=== PATIENT | male | born 1945 | race Hispanic/Latino ===

== ENCOUNTER 2021-11-12 16:24 | Inpatient (IN) | payer MEDICARE ==
[2021-11-13 10:34] LABS: Basophils # (Auto) 0.1 K/mm3 (0.0-0.1); Basophils % (Auto) 0.7 % (0.0-1.8); Eosinophils % (Auto) 0.5 % (0.0-4.3); Hematocrit 36.7 % (35.5-45.6); Hemoglobin 12.6 gm/dl (11.8-15.2); Lymphocytes # (Auto) 1.6 K/mm3 (1.2-5.4); Lymphocytes % (Auto) 23.4 % (13.4-35.0); Mean Corpuscular HGB Conc 34 % (32-34); Mean Corpuscular Volume 96 fl (84-94); Monocytes # (Auto) 0.7 K/mm3 (0.0-0.8); Monocytes % (Auto) 9.9 % (0.0-7.3); Platelet Count 272 K/mm3 (140-440); Red Blood Count 3.82 M/mm3 (3.65-5.03); Red Cell Distribution Width 16.2 % (13.2-15.2)
[2021-11-13 10:43] LABS: Alanine Aminotransferase 25 units/L (7-56); Albumin 3.9 g/dL (3.9-5); BUN/Creatinine Ratio 14; Blood Urea Nitrogen 13 mg/dL (9-20); Calcium 9.7 mg/dL (8.4-10.2); Chol/HDL Ratio 4.89 %; HDL Cholesterol 39 mg/dL (40-59); Hemolysis Index 0; LDL Cholesterol,Direct 121 mg/dL (50-130)
[2021-11-13] MEDS ORDERED: NON-FORMULARY EACH (Acetaminophen [Tylenol] 325 MG Capsule) PO PRN (11:06)
[2021-11-13] MEDS ORDERED: traMADol 50 MG TAB PO PRN (11:06)
--- NOTE | 2021-11-13 11:06 | Consultation ---
History of Present Illness - Reason for Consult Consult date: 11/13/21 Medical management Requesting physician: MARLY COVARRUBIAS - History of Present Illness 76-year-old male with Vascular Dementia with behavioral disturbance, Cerebral Atherosclerosis, HTN, HLD, Anemia of chronic disease, GERD, Obesity, OA, MDD admitted to [facility] for psychiatric stabilization. Patient seen and evaluated in the recreation room. Patient has fever, chills, chest pain, palpitation, adductive cough, skin rash and recent contact, no supportive COVID- 19. Patient appears to be at baseline level of cognition and function. No reported nursing events. Past History Past Medical History: anemia, arthritis, hypertension, hyperlipidemia, other (See HPI) Past Surgical History: hernia repair, Other (Shoulder surgery, spine surgery) Social history: . denies: smoking, alcohol abuse, prescription drug abuse Family history: diabetes, hypertension Medications and Allergies Allergies Allergy/AdvReac Type Severity Reaction Status Date / Time No Known Allergies Allergy Verified 11/13/21 01:08 Home Medications Medication Instructions Recorded Confirmed Last Taken Type Acetaminophen [Tylenol] 2 tab PO Q4H PRN 11/13/21 11/13/21 Unknown History Aspirin EC [Halfprin EC] 81 mg PO QDAY 11/13/21 11/13/21 Unknown History AtorvaSTATin [Lipitor] 40 mg PO HS 11/13/21 11/13/21 Unknown History Cholecalciferol (Vitamin D3) 5,000 unit PO DAILY 11/13/21 11/13/21 Unknown Histo ry [Vitamin D3] Elderberry Fruit and Flower [Black 1 cap PO DAILY 11/13/21 11/13/21 Unknown History Elderberry 575 mg Cap] Fenofibrate 160 mg PO DAILY 11/13/21 11/13/21 Unknown History Gabapentin [Neurontin] 300 mg PO BID 11/13/21 11/13/21 Unknown History Isosorbide Mononitrate [Isosorbide 30 mg PO Q24H 11/13/21 11/13/21 Unknown History Mononitrate ER] Metoprolol [Lopressor TAB] 50 mg PO BID 11/13/21 11/13/21 Unknown History Mineral Oil/Petrolatum,White 3.5 gm OP Q12H 11/13/21 11/13/21 Unknown History [Artificial Eye Lub 15-83% Oint] Multivitamin with Minerals 1 each PO DAILY 11/13/21 11/13/21 Unknown History [Multivitamins with Minerals] [place]-3 Fatty Acids [Super Twin 1,250 mg PO DAILY 11/13/21 11/13/21 Unknown History Epa-Dha] Omeprazole 40 mg PO QAM 11/13/21 11/13/21 Unknown History Valsartan [Diovan] 80 mg PO DAILY 11/13/21 11/13/21 Unknown History Vit C/E/Zn/Coppr/Lutein/Zeaxan 1 each PO DAILY 11/13/21 11/13/21 Unknown History [Preservision Areds 2 Chew Tab] polyethylene glycoL 3350 [Miralax 17 gm PO QDAY 11/13/21 11/13/21 Unknown History 3350] traMADoL [Ultram] 50 mg PO Q4HR PRN 11/13/21 11/13/21 Unknown History Active Meds: Active Medications Trazodone HCl (Trazodone 50 Mg Tab) 50 mg PO QHS RISSA Review of Systems Constitutional: no weight loss, no weight gain, no fever, no chills Ears, nose, mouth and throat: no ear pain, no tinnitis, no decreased hearing, no sinus pressure Cardiovascular: no chest pain, no palpitations, no rapid/irregular heart beat, no syncope, no lightheadedness Respiratory: no cough, no cough with sputum, no hemoptysis, no shortness of breath Gastrointestinal: no abdominal pain, no nausea, no vomiting, no diarrhea Genitourinary Male: no hematuria, no flank pain, no discharge, no urinary frequency, no urinary hesitancy Rectal: no pain, no incontinence, no bleeding Musculoskeletal: no neck stiffness, no neck pain, no shooting arm pain, no arm numbness/tingling, no low back pain Integumentary: no rash, no pruritis, no redness, no sores, no wounds Neurological: no head injury, no paralysis, no parathesias, no seizures, no syncope Endocrine: no cold intolerance, no polyphagia, no excessive thirst, no polydipsia, no nocturia Hematologic/Lymphatic: no easy bruising, no easy bleeding Allergic/Immunologic: no urticaria, no allergic rhinitis Exam - Constitutional Vitals: Temp Pulse Resp BP Pulse Ox 97.6 F 102 H 16 135/90 96 11/13/21 09:53 08/03/22 09:53 11/13/21 09:53 11/13/21 09:53 11/13/21 09:53 General appearance: Present: no acute distress, obese - EENT Eyes: Present: PERRL ENT: clear oral mucosa, hearing decreased - Neck Neck: Present: supple, normal ROM - Respiratory Respiratory effort: normal Respiratory: bilateral: CTA - Cardiovascular Heart Sounds: Present: S1 & S2. Absent: rub, click - Extremities Extremities: pulses symmetrical, No edema Peripheral Pulses: within normal limits - Abdominal General gastrointestinal: Present: soft, non-tender, non-distended, normal bowel sounds Male genitourinary: Present: normal - Integumentary Integumentary: Present: clear, warm, dry - Musculoskeletal Musculoskeletal: gait normal, strength equal bilaterally - Psychiatric Psychiatric: appropriate mood/affect, intact judgment & insight - Neurologic Neurologic: CNII-XII intact, moves all extremities Results - Labs CBC & Chem 7: 11/13/21 09:58 11/13/21 09:58 Labs: Abnormal lab results 11/13/21 11/13/21 Range/Units 09:58 09:58 MCV 96 H (84-94) fl MCH 33 H (28-32) pg RDW 16.2 H (13.2-15.2) % [place] % (Auto) 9.9 H (0.0-7.3) % Glucose 110 H (75-100) mg/dL Triglycerides 172 H (2-149) mg/dL HDL Cholesterol 39 L (40-59) mg/dL Assessment and Plan - Patient Problems (1) Major depression Current Visit: Yes Status: Acute Qualifiers: Psychotic features: with psychotic features Plan to address problem: Continue medical management, supportive care. Behavior change counseling, cognitive behavioral therapy. (2) Vascular dementia with behavioral disturbance Current Visit: Yes Status: Acute Plan to address problem: Verbal prompting, verbal redirection, benzodiazepine therapy as clinically indicated (3) Cerebral atherosclerosis Current Visit: Yes Status: Acute Plan to address problem: Risk factor reduction, antiplatelet therapy as clinically indicated. (4) Hypertension Current Visit: Yes Status: Acute Qualifiers: Hypertension type: primary hypertension Qualified Code(s): I10 - Essential (primary) hypertension Plan to address problem: Monitor blood pressure every shift, continue medical management (5) Hyperlipidemia Current Visit: Yes Status: Acute Qualifiers: Hyperlipidemia type: mixed hyperlipidemia Qualified Code(s): E78.2 - Mixed hyperlipidemia Plan to address problem: Low-cholesterol diet, statin therapy, supportive care. (6) Obesity Current Visit: Yes Status: Acute Plan to address problem: Balanced diet, increase physical activity discharge (7) Osteoarthritis Current Visit: Yes Status: Acute Plan to address problem: Pain control, supportive care. (8) Advance care planning Current Visit: Yes Status: Acute Plan to address problem: Disease education data, care plan discussed, diagnoses discussed, patient is full code, +30 minutes. (9) Preventative health care Current Visit: Yes Status: Acute Plan to address problem: Home safety counseling, outpatient follow-up with primary care physician for all age and risk factor appropriate screening test. +30 minutes.
[2021-11-13] MEDS ORDERED: PETROLATUM OP SCH (11:15)
[2021-11-13] MEDS ORDERED: MINERAL OIL OP SCH (11:15)
[2021-11-13] MEDS ORDERED: [UNRECOGNIZED DRUG - OTHER] OP SCH (11:15)
[2021-11-13] MEDS ORDERED: ACETAMINOPHEN 325 MG TAB PO PRN (11:24)
[2021-11-13] MEDS ORDERED: HYPROMELLOSE 0.5% OPHTH SOLN 15 ML OU PRN (11:26)
--- NOTE | 2021-11-13 16:23 | History and Physical Report ---
GP History & Physical - History of Present Illness Date of admission: 11/12/21 Date of Examination: 11/13/21 Reason for Admission: Danger to self, Failure of Outpatient Treatment, Severe anxiety/depression History of Present Illness: The patient was seen today. He is a/o x 3, but he is a poor historian and difficult to follow. He says he said some things jokingly that landed him here. He says he said "where's the 45 I might as well ended." He says "but I wasn't serious." The patient also says he picked up a butter knife but was only joking. He as a lot of difficulty articulating his thoughts. The patient denies hallucinations or SI/HI. He says he lives in a local shelter. PAST PSYCHIATRIC HISTORY: Unable to obtain PAST MEDICAL HISTORY: Family Psychiatric History: None reported SOCIAL HISTORY Unable to obtain REVIEW OF SYSTEMS Constitutional: Negative for weight loss ENT: Negative for stridor Respiratory: Negative for cough or hemoptysis All other systems reviewed and are negative MENTAL STATUS General Appearance and Behavior: age appropriate, good eye contact, cooperative with questioning and polite Cooperation: Cooperative Psychomotor Behavior: within normal limits Mood: okay Affect and affective range: Congruent with stated mood Thought Process: impaired Thought Content: None Speech: Rambling Suicidal Ideation: possibly passive Homicidal Ideation: Denies HI Hallucinations: Denies Impulse Control: Limited Insight and Judgment: Poor Memory: Limited Attention: Limited Orientation: alert and oriented Assessment Major Depressive Disorder Treatment Plan Patient will be admitted for inpatient psychiatric evaluation, medication adjustment and close monitoring The patient's behavior, mood, sleep and appetite will be closely monitored. Patient will be enrolled in individual and group therapeutic sessions and encouraged to attend. Patient will be provided with a safe and structured environment. Patient's physical health needs will be addressed by the Hospitalist. Hospitalist Consulted Labs including CBC, CMP, Lipid profile and Hemoglobin A1C ordered Social Assessment will be completed and the Hydrometeorological Technician will work with patient and family to ensure a suitable and safe disposition Medication adjustment will be made as clinically indicated Restarted meds Usual Wellness Spiritism/Preservation: - Start Trazodone 50 mg po QHS PRN The patient agreed on the treatment plan, understood the risk, benefit, alternative treatment, potential consequence of no treatment, and gave informed consent. Case staffed with Dr. Jolly Legal Status: Voluntary Reaction to Hospitalization: Accepting Medications and Allergies Allergies Allergy/AdvReac Type Severity Reaction Status Date / Time No Known Allergies Allergy Verified 11/13/21 01:08 Home Medications Medication Instructions Recorded Confirmed Last Taken Type Acetaminophen [Tylenol] 2 tab PO Q4H PRN 11/13/21 11/13/21 Unknown History Aspirin EC [Halfprin EC] 81 mg PO QDAY 11/13/21 11/13/21 Unknown History AtorvaSTATin [Lipitor] 40 mg PO HS 11/13/21 11/13/21 Unknown History Cholecalciferol (Vitamin D3) 5,000 unit PO DAILY 11/13/21 11/13/21 Unknown History [Vitamin D3] Elderberry Fruit and Flower [Black 1 cap PO DAILY 11/13/21 11/13/21 Unknown History Elderberry 575 mg Cap] Fenofibrate 160 mg PO DAILY 11/13/21 11/13/21 Unknown History Gabapentin [Neurontin] 300 mg PO BID 11/13/21 11/13/21 Unknown History Isosorbide Mononitrate [Isosorbide 30 mg PO Q24H 11/13/21 11/13/21 Unknown History Mononitrate ER] Metoprolol [Lopressor TAB] 50 mg PO BID 11/13/21 11/13/21 Unknown History Mineral Oil/Petrolatum,White 3.5 gm OP Q12H 11/13/21 11/13/21 Unknown History [Artificial Eye Lub 15-83% Oint] Multivitamin with Minerals 1 each PO DAILY 11/13/21 11/13/21 Unknown History [Multivitamins with Minerals] [place]-3 Fatty Acids [Super Twin 1,250 mg PO DAILY 11/13/21 11/13/21 Unknown History Epa-Dha] Omeprazole 40 mg PO QAM 11/13/21 11/13/21 Unknown History Valsartan [Diovan] 80 mg PO DAILY 11/13/21 11/13/21 Unknown History Vit C/E/Zn/Coppr/Lutein/Zeaxan 1 each PO DAILY 11/13/21 11/13/21 Unknown History [Preservision Areds 2 Chew Tab] polyethylene glycoL 3350 [Miralax 17 gm PO QDAY 11/13/21 11/13/21 Unknown History 3350] traMADoL [Ultram] 50 mg PO Q4HR PRN 11/13/21 11/13/21 Unknown History Active Meds: Active Medications Acetaminophen (Acetaminophen 325 Mg Tab) 650 mg PO Q4H PRN PRN Reason: Pain, Mild (1-3) Artificial Tears (Hypromellose 0.5% Ophth Soln 15 Ml) 2 drops OU Q12H PRN PRN Reason: Dry Eye(s) Aspirin (Aspirin Ec 81 Mg Tab) 81 mg PO QDAY [facility] Atorvastatin Calcium (Atorvastatin 40 Mg Tab) 40 mg PO HS [facility] Cholecalciferol (Cholecalciferol (Vit D3) 5,000 Unit Tab) 5,000 unit PO DAILY [facility] Fish Oil ([place]-3 Fatty Acids/Fish Oil 1 Gram Cap) 1,000 mg PO QDAY [facility] Gabapentin (Gabapentin 300 Mg Cap) 300 mg PO BID [facility] Isosorbide Mononitrate (Isosorbide Mononitrate Er 30 Mg Tab) 30 mg PO Q24H [facility] Last Admin: 11/13/21 14:42 Dose: 30 mg Metoprolol Tartrate (Metoprolol Tartrate 50 Mg Tab) 50 mg PO BID [facility] Miscellaneous Medication (Fenofibrate [Fenofibrate]) 160 mg PO DAILY [facility] Multivitamins (Multivitamins ,Therapeutic Tab) 1 each PO DAILY [facility] Pantoprazole Sodium (Pantoprazole 40 Mg Tab) 40 mg PO DAILY [facility] Polyethylene Glycol (Polyethylene Glycol 3350 17 Gm Powder) 17 gm PO QDAY [facility] Tramadol HCl (Tramadol 50 Mg Tab) 50 mg PO Q4HR PRN PRN Reason: Pain, Moderate (4-6) Trazodone HCl (Trazodone 50 Mg Tab) 50 mg PO QHS [facility] Valsartan (Valsartan 160mg Tab) 80 mg PO QDAY [facility] Results - Results Labs/Vitals: Laboratory Last Values WBC 6.9 K/mm3 (4.5-11.0) 11/13/21 09:58 RBC 3.82 M/mm3 (3.65-5.03) 11/13/21 09:58 Hgb 12.6 gm/dl (11.8-15.2) 11/13/21 09:58 Hct 36.7 % (35.5-45.6) 11/13/21 09:58 MCV 96 fl (84-94) H 11/13/21 09:58 MCH 33 pg (28-32) H 11/13/21 09:58 MCHC 34 % (32-34) 11/13/21 09:58 RDW 16.2 % (13.2-15.2) H 11/13/21 09:58 Plt Count 272 K/mm3 (140-440) 11/13/21 09:58 Lymph % (Auto) 23.4 % (13.4-35.0) 11/13/21 09:58 [place] % (Auto) 9.9 % (0.0-7.3) H 11/13/21 09:58 Eos % (Auto) 0.5 % (0.0-4.3) 11/13/21 09:58 Baso % (Auto) 0.7 % (0.0-1.8) 11/13/21 09:58 Lymph # (Auto) 1.6 K/mm3 (1.2-5.4) 11/13/21 09:58 [place] # (Auto) 0.7 K/mm3 (0.0-0.8) 11/13/21 09:58 Eos # (Auto) 0.0 K/mm3 (0.0-0.4) 11/13/21 09:58 Baso # (Auto) 0.1 K/mm3 (0.0-0.1) 11/13/21 09:58 Seg Neutrophils % 65.5 % (40.0-70.0) 11/13/21 09:58 Seg Neutrophils # 4.5 K/mm3 (1.8-7.7) 11/13/21 09:58 Sodium 138 mmol/L (137-145) 11/13/21 09:58 Potassium 3.6 mmol/L (3.6-5.0) 11/13/21 09:58 Chloride 103.2 mmol/L (98-107) 11/13/21 09:58 Carbon Dioxide 22 mmol/L (22-30) 11/13/21 09:58 Anion Gap 16 mmol/L 11/13/21 09:58 BUN 13 mg/dL (9-20) 11/13/21 09:58 Creatinine 0.9 mg/dL (0.8-1.3) 11/13/21 09:58 Estimated GFR > 60 ml/min 11/13/21 09:58 BUN/Creatinine Ratio 14 % 11/13/21 09:58 Glucose 110 mg/dL (75-100) H 11/13/21 09:58 Hemoglobin A1c 5.6 % (4-6) 11/13/21 09:58 Calcium 9.7 mg/dL (8.4-10.2) 11/13/21 09:58 Total Bilirubin 0.50 mg/dL (0.1-1.2) 11/13/21 09:58 AST 29 units/L (5-40) 11/13/21 09:58 ALT 25 units/L (7-56) 11/13/21 09:58 Alkaline Phosphatase 73 units/L (35-129) 11/13/21 09:58 Total Protein 6.8 g/dL (6.3-8.2) 11/13/21 09:58 Albumin 3.9 g/dL (3.9-5) 11/13/21 09:58 Albumin/Globulin Ratio 1.3 % 11/13/21 09:58 Triglycerides 172 mg/dL (2-149) H 11/13/21 09:58 Cholesterol 191 mg/dL (50-199) 11/13/21 09:58 LDL Cholesterol Direct 121 mg/dL (50-130) 11/13/21 09:58 HDL Cholesterol 39 mg/dL (40-59) L 11/13/21 09:58 Cholesterol/HDL Ratio 4.89 % 11/13/21 09:58 TSH 2.900 mlU/mL (0.270-4.200) 11/13/21 09:58 Last Vital Signs Temp 97.6 F 11/13/21 09:53 Pulse 102 H 11/13/21 14:42 Resp 16 11/13/21 09:53 BP 135/90 11/13/21 14:42 Pulse Ox 96 11/13/21 09:53 Physical Examination - Constitutional Vitals: Vital Signs Temp Pulse Resp BP Pulse Ox 97.6 F 102 H 16 135/90 96 11/13/21 09:53 11/13/21 14:42 11/13/21 09:53 11/13/21 14:42 11/13/21 09:53 Temperature -Last 24 Hours Temperature 97.6 F Temperature 97.9 F Mental Status Exam - Vital signs Last Vital Signs Temp 97.6 F 11/13/21 09:53 Pulse 102 H 11/13/21 14:42 Resp 16 11/13/21 09:53 BP 135/90 11/13/21 14:42 Pulse Ox 96 11/13/21 09:53 Physician Certification - Certification Statement Physician Certification Statement: This is an acknowledgement statement that CHU FERNANDO is a 76 year old M who requires inpatient psychiatric admission for treatment which could reasonably be expected to improve the patient's condition for Estimated period of time patient will need to remain in the hospital: [ ] Plan for post-hospital care: [ ]
[2021-11-13] MEDS: traZODone 50 MG TAB PO SCH (21:57)
[2021-11-13] MEDS: GABAPENTIN 300 MG CAP PO SCH (21:57)
[2021-11-13] MEDS: METOPROLOL TARTRATE 50 MG TAB PO SCH (22:08)
[2021-11-13] MEDS: traMADol 50 MG TAB PO PRN (23:39)
[2021-11-14] MEDS ORDERED: ESCITALOPRAM 10 MG TAB PO NR (09:57)
--- NOTE | 2021-11-14 09:57 | History and Physical Report ---
GP History & Physical - History of Present Illness Date of admission: 11/13/21 Date of Examination: 11/14/21 Reason for Admission: Danger to self, Failure of Outpatient Treatment, Severe anxiety/depression History of Present Illness: The patient was seen today. He has periods of confusion. He says he slept well he doesn't remember being in the hospital. He denies SI/HI. When asked about hallucinations, he states "I don't know." REVIEW OF SYSTEMS Constitutional: Negative for weight loss ENT: Negative for stridor Respiratory: Negative for cough or hemoptysis All other systems reviewed and are negative MENTAL STATUS General Appearance and Behavior: age appropriate, good eye contact, cooperative with questioning and polite Cooperation: Cooperative Psychomotor Behavior: within normal limits Mood: okay Affect and affective range: Congruent with stated mood Thought Process: impaired Thought Content: None Speech: Rambling Suicidal Ideation: possibly passive Homicidal Ideation: Denies HI Hallucinations: Denies Impulse Control: Limited Insight and Judgment: Poor Memory: Limited Attention: Limited Orientation: alert and oriented Assessment Major Depressive Disorder Treatment Plan Patient will be admitted for inpatient psychiatric evaluation, medication adjustment and close monitoring The patient's behavior, mood, sleep and appetite will be closely monitored. Patient will be enrolled in individual and group therapeutic sessions and encouraged to attend. Patient will be provided with a safe and structured environment. Patient's physical health needs will be addressed by the Hospitalist. Hospitalist Consulted Labs including CBC, CMP, Lipid profile and Hemoglobin A1C ordered Social Assessment will be completed and the Needle Felt Making Machine Operator will work with patient and family to ensure a suitable and safe disposition Medication adjustment will be made as clinically indicated Lexapro 5mg po daily Usual Wellness Zoroastrianism/Preservation: - Start Trazodone 50 mg po QHS PRN The patient agreed on the treatment plan, understood the risk, benefit, alternative treatment, potential consequence of no treatment, and gave informed consent. Case staffed with Dr. Jolly Legal Status: Voluntary Reaction to Hospitalization: Accepting Medications and Allergies Allergies Allergy/AdvReac Type Severity Reaction Status Date / Time No Known Allergies Allergy Verified 11/13/21 01:08 Home Medications Medication Instructions Recorded Confirmed Last Taken Type Acetaminophen [Tylenol] 2 tab PO Q4H PRN 11/13/21 11/13/21 Unknown History Aspirin EC [Halfprin EC] 81 mg PO QDAY 11/13/21 11/13/21 Unknown History AtorvaSTATin [Lipitor] 40 mg PO HS 11/13/21 11/13/21 Unknown History Cholecalciferol (Vitamin D3) 5,000 unit PO DAILY 11/13/21 11/13/21 Unknown History [Vitamin D3] Elderberry Fruit and Flower [Black 1 cap PO DAILY 11/13/21 11/13/21 Unknown History Elderberry 575 mg Cap] Fenofibrate 160 mg PO DAILY 11/13/21 11/13/21 Unknown History Gabapentin [Neurontin] 300 mg PO BID 11/13/21 11/13/21 Unknown History Isosorbide Mononitrate [Isosorbide 30 mg PO Q24H 11/13/21 11/13/21 Unknown History Mononitrate ER] Metoprolol [Lopressor TAB] 50 mg PO BID 11/13/21 11/13/21 Unknown History Mineral Oil/Petrolatum,White 3.5 gm OP Q12H 11/13/21 11/13/21 Unknown History [Artificial Eye Lub 15-83% Oint] Multivitamin with Minerals 1 each PO DAILY 11/13/21 11/13/21 Unknown History [Multivitamins with Minerals] [place]-3 Fatty Acids [Super Twin 1,250 mg PO DAILY 11/13/21 11/13/21 Unknown Hi story Epa-Dha] Omeprazole 40 mg PO QAM 11/13/21 11/13/21 Unknown History Valsartan [Diovan] 80 mg PO DAILY 11/13/21 11/13/21 Unknown History Vit C/E/Zn/Coppr/Lutein/Zeaxan 1 each PO DAILY 11/13/21 11/13/21 Unknown History [Preservision Areds 2 Chew Tab] polyethylene glycoL 3350 [Miralax 17 gm PO QDAY 11/13/21 11/13/21 Unknown History 3350] traMADoL [Ultram] 50 mg PO Q4HR PRN 11/13/21 11/13/21 Unknown History Active Meds: Active Medications Acetaminophen (Acetaminophen 325 Mg Tab) 650 mg PO Q4H PRN PRN Reason: Pain, Mild (1-3) Artificial Tears (Hypromellose 0.5% Ophth Soln 15 Ml) 2 drops OU Q12H PRN PRN Reason: Dry Eye(s) Aspirin (Aspirin Ec 81 Mg Tab) 81 mg PO QDAY RISSA Atorvastatin Calcium (Atorvastatin 40 Mg Tab) 40 mg PO HS [facility] Last Admin: 11/13/21 21:57 Dose: 40 mg Cholecalciferol (Cholecalciferol (Vit D3) 5,000 Unit Tab) 5,000 unit PO DAILY [facility] Fenofibrate (Fenofibrate 145 Mg Tab) 145 mg PO DAILY [facility] Fish Oil ([place]-3 Fatty Acids/Fish Oil 1 Gram Cap) 1,000 mg PO QDAY [facility] Gabapentin (Gabapentin 300 Mg Cap) 300 mg PO BID [facility] Last Admin: 11/13/21 21:57 Dose: 300 mg Isosorbide Mononitrate (Isosorbide Mononitrate Er 30 Mg Tab) 30 mg PO Q24H [facility] Last Admin: 11/13/21 14:42 Dose: 30 mg Metoprolol Tartrate (Metoprolol Tartrate 50 Mg Tab) 50 mg PO BID [facility] Last Admin: 11/13/21 22:08 Dose: 50 mg Multivitamins (Multivitamins ,Therapeutic Tab) 1 each PO DAILY [facility] Pantoprazole Sodium (Pantoprazole 40 Mg Tab) 40 mg PO DAILY [facility] Polyethylene Glycol (Polyethylene Glycol 3350 17 Gm Powder) 17 gm PO QDAY [facility] Tramadol HCl (Tramadol 50 Mg Tab) 50 mg PO Q4HR PRN PRN Reason: Pain, Moderate (4-6) Last Admin: 11/13/21 23:39 Dose: 50 mg Trazodone HCl (Trazodone 50 Mg Tab) 50 mg PO QHS [facility] Last Admin: 11/13/21 21:57 Dose: 50 mg Valsartan (Valsartan 160mg Tab) 80 mg PO QDAY [facility] Results - Results Labs/Vitals: Laboratory Last Values WBC 6.9 K/mm3 (4.5-11.0) 11/13/21 09:58 RBC 3.82 M/mm3 (3.65-5.03) 11/13/21 09:58 Hgb 12.6 gm/dl (11.8-15.2) 11/13/21 09:58 Hct 36.7 % (35.5-45.6) 11/13/21 09:58 MCV 96 fl (84-94) H 11/13/21 09:58 MCH 33 pg (28-32) H 11/13/21 09:58 MCHC 34 % (32-34) 11/13/21 09:58 RDW 16.2 % (13.2-15.2) H 11/13/21 09:58 Plt Count 272 K/mm3 (140-440) 11/13/21 09:58 Lymph % (Auto) 23.4 % (13.4-35.0) 11/13/21 09:58 [place] % (Auto) 9.9 % (0.0-7.3) H 11/13/21 09:58 Eos % (Auto) 0.5 % (0.0-4.3) 11/13/21 09:58 Baso % (Auto) 0.7 % (0.0-1.8) 11/13/21 09:58 Lymph # (Auto) 1.6 K/mm3 (1.2-5.4) 11/13/21 09:58 [place] # (Auto) 0.7 K/mm3 (0.0-0.8) 11/13/21 09:58 Eos # (Auto) 0.0 K/mm3 (0.0-0.4) 11/13/21 09:58 Baso # (Auto) 0.1 K/mm3 (0.0-0.1) 11/13/21 09:58 Seg Neutrophils % 65.5 % (40.0-70.0) 11/13/21 09:58 Seg Neutrophils # 4.5 K/mm3 (1.8-7.7) 11/13/21 09:58 Sodium 138 mmol/L (137-145) 11/13/21 09:58 Potassium 3.6 mmol/L (3.6-5.0) 11/13/21 09:58 Chloride 103.2 mmol/L (98-107) 11/13/21 09:58 Carbon Dioxide 22 mmol/L (22-30) 11/13/21 09:58 Anion Gap 16 mmol/L 11/13/21 09:58 BUN 13 mg/dL (9-20) 11/13/21 09:58 Creatinine 0.9 mg/dL (0.8-1.3) 11/13/21 09:58 Estimated GFR > 60 ml/min 11/13/21 09:58 BUN/Creatinine Ratio 14 % 11/13/21 09:58 Glucose 110 mg/dL (75-100) H 11/13/21 09:58 Hemoglobin A1c 5.6 % (4-6) 11/13/21 09:58 Calcium 9.7 mg/dL (8.4-10.2) 11/13/21 09:58 Total Bilirubin 0.50 mg/dL (0.1-1.2) 11/13/21 09:58 AST 29 units/L (5-40) 11/13/21 09:58 ALT 25 units/L (7-56) 11/13/21 09:58 Alkaline Phosphatase 73 units/L (35-129) 11/13/21 09:58 Total Protein 6.8 g/dL (6.3-8.2) 11/13/21 09:58 Albumin 3.9 g/dL (3.9-5) 11/13/21 09:58 Albumin/Globulin Ratio 1.3 % 11/13/21 09:58 Triglycerides 172 mg/dL (2-149) H 11/13/21 09:58 Cholesterol 191 mg/dL (50-199) 11/13/21 09:58 LDL Cholesterol Direct 121 mg/dL (50-130) 11/13/21 09:58 HDL Cholesterol 39 mg/dL (40-59) L 11/13/21 09:58 Cholesterol/HDL Ratio 4.89 % 11/13/21 09:58 TSH 2.900 mlU/mL (0.270-4.200) 11/13/21 09:58 Last Vital Signs Temp 98.0 F 11/13/21 19:10 Pulse 112 H 11/13/21 22:08 Resp 18 11/13/21 23:39 BP 110/68 11/13/21 22:08 Pulse Ox 96 11/13/21 19:10 Physical Examination - Constitutional Vitals: Vital Signs Temp Pulse Resp BP Pulse Ox 98.0 F 112 H 18 110/68 96 11/13/21 19:10 11/13/21 22:08 11/13/21 23:39 11/13/21 22:08 11/13/21 19:10 Temperature -Last 24 Hours Temperature 98.0 F Mental Status Exam - Vital signs Last Vital Signs Temp 98.0 F 11/13/21 19:10 Pulse 112 H 11/13/21 22:08 Resp 18 11/13/21 23:39 BP 110/68 11/13/21 22:08 Pulse Ox 96 11/13/21 19:10 Physician Certification - Certification Statement Physician Certification Statement: This is an acknowledgement statement that CHU FERNANDO is a 76 year old M who requires inpatient psychiatric admission for treatment which could reas onably be expected to improve the patient's condition for Estimated period of time patient will need to remain in the hospital: [ ] Plan for post-hospital care: [ ]
[2021-11-14] MEDS ORDERED: ELDERBERRY FRUIT AND FLOWER PO SCH (10:00)
[2021-11-14] MEDS ORDERED: [UNRECOGNIZED DRUG - OTHER] PO SCH (10:00)
[2021-11-14] MEDS ORDERED: [UNRECOGNIZED DRUG - OTHER] PO SCH (10:00)
[2021-11-14] MEDS ORDERED: NON-FORMULARY EACH (Fenofibrate [Fenofibrate] 160 MG Tablet) PO SCH (10:00)
[2021-11-14] MEDS ORDERED: OMEGA 3 FATTY ACIDS PO SCH (10:00)
[2021-11-14] MEDS ORDERED: NON-FORMULARY EACH (Valsartan [Diovan] 80 MG Tablet) PO SCH (10:00)
[2021-11-14] MEDS ORDERED: NON-FORMULARY EACH (Omeprazole [Omeprazole] 40 MG Capsule.Dr) PO SCH (10:00)
[2021-11-14] MEDS ORDERED: MULTIVITAMIN WITH MINERALS PO SCH (10:00)
[2021-11-14] MEDS: GABAPENTIN 300 MG CAP PO SCH ×2 (11:06→21:14)
[2021-11-14] MEDS: MULTIVITAMINS ,THERAPEUTIC TAB PO SCH (11:06)
[2021-11-14] MEDS: FENOFIBRATE 145 MG TAB PO SCH (11:06)
[2021-11-14] MEDS: OMEGA-3 FATTY ACIDS/FISH OIL 1 GRAM CAP PO SCH (11:06)
[2021-11-14] MEDS: PANTOPRAZOLE 40 MG TAB PO SCH (11:06)
[2021-11-14] MEDS: CHOLECALCIFEROL (VIT D3) 5,000 UNIT TAB PO SCH (11:08)
[2021-11-14] MEDS: VALSARTAN 160MG TAB PO SCH (11:09)
[2021-11-14] MEDS: ASPIRIN EC 81 MG TAB PO SCH (11:11)
[2021-11-14] MEDS: METOPROLOL TARTRATE 50 MG TAB PO SCH ×2 (11:12→21:15)
[2021-11-14] MEDS: POLYETHYLENE GLYCOL 3350 17 GM POWDER PO SCH (11:23)
[2021-11-14] MEDS: traZODone 50 MG TAB PO SCH (21:14)
[2021-11-15] MEDS: POLYETHYLENE GLYCOL 3350 17 GM POWDER PO SCH (10:12)
[2021-11-15] MEDS: CHOLECALCIFEROL (VIT D3) 5,000 UNIT TAB PO SCH (10:13)
[2021-11-15] MEDS: MULTIVITAMINS ,THERAPEUTIC TAB PO SCH (10:14)
[2021-11-15] MEDS: VALSARTAN 160MG TAB PO SCH (10:14)
[2021-11-15] MEDS: GABAPENTIN 300 MG CAP PO SCH ×2 (10:14→21:37)
[2021-11-15] MEDS: OMEGA-3 FATTY ACIDS/FISH OIL 1 GRAM CAP PO SCH (10:14)
[2021-11-15] MEDS: ASPIRIN EC 81 MG TAB PO SCH (10:15)
[2021-11-15] MEDS: PANTOPRAZOLE 40 MG TAB PO SCH (10:15)
[2021-11-15] MEDS: FENOFIBRATE 145 MG TAB PO SCH (10:15)
--- NOTE | 2021-11-15 10:32 | Progress Note ---
Assessment and Plan - Patient Problems (1) Major depression Current Visit: Yes Status: Acute Qualifiers: Psychotic features: with psychotic features Plan to address problem: Continue medical management, supportive care. Behavior change counseling, cognitive behavioral therapy. (2) Vascular dementia with behavioral disturbance Current Visit: Yes Status: Acute Plan to address problem: Verbal prompting, verbal redirection, benzodiazepine therapy as clinically indicated (3) Cerebral atherosclerosis Current Visit: Yes Status: Acute Plan to address problem: Risk factor reduction, antiplatelet therapy as clinically indicated. (4) Hypertension Current Visit: Yes Status: Acute Qualifiers: Hypertension type: primary hypertension Qualified Code(s): I10 - Essential (primary) hypertension Plan to address problem: Monitor blood pressure every shift, continue medical management (5) Hyperlipidemia Current Visit: Yes Status: Acute Qualifiers: Hyperlipidemia type: mixed hyperlipidemia Qualified Code(s): E78.2 - Mixed hyperlipidemia Plan to address problem: Low-cholesterol diet, statin therapy, supportive care. (6) Obesity Current Visit: Yes Status: Acute Plan to address problem: Balanced diet, increase physical activity discharge (7) Osteoarthritis Current Visit: Yes Status: Acute Plan to address problem: Pain control, supportive care. (8) Advance care planning Current Visit: Yes Status: Acute Plan to address problem: Disease education data, care plan discussed, diagnoses discussed, patient is full code, +30 minutes. (9) Preventative health care Current Visit: Yes Status: Acute Plan to address problem: Home safety counseling, outpatient follow-up with primary care physician for all age and risk factor appropriate screening test. +30 minutes. History Interval history: 76-year-old male with Vascular Dementia with behavioral disturbance, Cerebral Atherosclerosis, HTN, HLD, Anemia of chronic disease, GERD, Obesity, OA, MDD admitted to [facility] for psychiatric stabilization. Consult placed by Dr. Sauceda for medical management. Patient seen and evaluated in the recreation room. Patient appears to be at baseline level of cognition and function. No reported nursing events. Hospitalist Physical - Constitutional Vitals: Temp Pulse Resp BP Pulse Ox 97.8 F 92 H 18 111/68 97 11/14/21 21:18 11/15/21 10:14 11/14/21 21:18 11/15/21 10:14 11/14/21 21:18 General appearance: Present: no acute distress, obese - EENT Eyes: Present: PERRL ENT: hearing decreased - Neck Neck: Present: supple - Respiratory Respiratory effort: normal Respiratory: bilateral: diminished - Cardiovascular Rhythm: regular Heart Sounds: Present: S1 & S2 - Extremities Extremities: no ischemia Peripheral Pulses: within normal limits - Abdominal General gastrointestinal: soft, non-tender, non-distended - Integumentary Integumentary: Present: clear, dry - Psychiatric Psychiatric: cooperative - Neurologic Neurologic: CNII-XII intact Results - Labs CBC & Chem 7: 11/13/21 09:58 11/13/21 09:58 Labs: Laboratory Last Values WBC 6.9 K/mm3 (4.5-11.0) 11/13/21 09:58 RBC 3.82 M/mm3 (3.65-5.03) 11/13/21 09:58 Hgb 12.6 gm/dl (11.8-15.2) 11/13/21 09:58 Hct 36.7 % (35.5-45.6) 11/13/21 09:58 MCV 96 fl (84-94) H 11/13/21 09:58 MCH 33 pg (28-32) H 11/13/21 09:58 MCHC 34 % (32-34) 11/13/21 09:58 RDW 16.2 % (13.2-15.2) H 11/13/21 09:58 Plt Count 272 K/mm3 (140-440) 11/13/21 09:58 Lymph % (Auto) 23.4 % (13.4-35.0) 11/13/21 09:58 [place] % (Auto) 9.9 % (0.0-7.3) H 11/13/21 09:58 Eos % (Auto) 0.5 % (0.0-4.3) 11/13/21 09:58 Baso % (Auto) 0.7 % (0.0-1.8) 11/13/21 09:58 Lymph # (Auto) 1.6 K/mm3 (1.2-5.4) 11/13/21 09:58 [place] # (Auto) 0.7 K/mm3 (0.0-0.8) 11/13/21 09:58 Eos # (Auto) 0.0 K/mm3 (0.0-0.4) 11/13/21 09:58 Baso # (Auto) 0.1 K/mm3 (0.0-0.1) 11/13/21 09:58 Seg Neutrophils % 65.5 % (40.0-70.0) 11/13/21 09:58 Seg Neutrophils # 4.5 K/mm3 (1.8-7.7) 11/13/21 09:58 Sodium 138 mmol/L (137-145) 11/13/21 09:58 Potassium 3.6 mmol/L (3.6-5.0) 11/13/21 09:58 Chloride 103.2 mmol/L (98-107) 11/13/21 09:58 Carbon Dioxide 22 mmol/L (22-30) 11/13/21 09:58 Anion Gap 16 mmol/L 11/13/21 09:58 BUN 13 mg/dL (9-20) 11/13/21 09:58 Creatinine 0.9 mg/dL (0.8-1.3) 11/13/21 09:58 Estimated GFR > 60 ml/min 11/13/21 09:58 BUN/Creatinine Ratio 14 % 11/13/21 09:58 Glucose 110 mg/dL (75-100) H 11/13/21 09:58 Hemoglobin A1c 5.6 % (4-6) 11/13/21 09:58 Calcium 9.7 mg/dL (8.4-10.2) 11/13/21 09:58 Total Bilirubin 0.50 mg/dL (0.1-1.2) 11/13/21 09:58 AST 29 units/L (5-40) 11/13/21 09:58 ALT 25 units/L (7-56) 11/13/21 09:58 Alkaline Phosphatase 73 units/L (35-129) 11/13/21 09:58 Total Protein 6.8 g/dL (6.3-8.2) 11/13/21 09:58 Albumin 3.9 g/dL (3.9-5) 11/13/21 09:58 Albumin/Globulin Ratio 1.3 % 11/13/21 09:58 Triglycerides 172 mg/dL (2-149) H 11/13/21 09:58 Cholesterol 191 mg/dL (50-199) 11/13/21 09:58 LDL Cholesterol Direct 121 mg/dL (50-130) 11/13/21 09:58 HDL Cholesterol 39 mg/dL (40-59) L 11/13/21 09:58 Cholesterol/HDL Ratio 4.89 % 11/13/21 09:58 TSH 2.900 mlU/mL (0.270-4.200) 11/13/21 09:58 Sears/IV: Voiding Method Toilet Active Medications - Current Medications Current Medications: Generic Name Dose Route Start Last Admin Trade Name Freq PRN Reason Stop Dose Admin Acetaminophen 650 mg 11/13/21 11:24 Acetaminophen 325 Mg Tab PO Q4H PRN Pain, Mild (1-3) Artificial Tears 2 drops 11/13/21 11:26 Hypromellose 0.5% Ophth Soln 15 Ml OU Q12H PRN Dry Eye(s) Aspirin 81 mg 11/14/21 10:00 11/15/21 10:15 Aspirin Ec 81 Mg Tab PO 81 mg QDAY RISSA Administration Atorvastatin Calcium 40 mg 11/13/21 22:00 11/14/21 21:14 Atorvastatin 40 Mg Tab PO 40 mg HS RISSA Administration Cholecalciferol 5,000 unit 11/14/21 10:00 11/15/21 10:13 Cholecalciferol (Vit D3) 5,000 Unit Tab PO 5,000 unit DAILY RISSA Administration Fenofibrate 145 mg 11/14/21 10:00 11/15/21 10:15 Fenofibrate 145 Mg Tab PO 145 mg DAILY RISSA Administration Fish Oil 1,000 mg 11/14/21 10:00 11/15/21 10:14 [place]-3 Fatty Acids/Fish Oil 1 Gram Cap PO 1,000 mg QDAY RISSA Administration Gabapentin 300 mg 11/13/21 22:00 11/15/21 10:14 Gabapentin 300 Mg Cap PO 300 mg BID RISSA Administration Isosorbide Mononitrate 30 mg 11/13/21 12:00 11/15/21 10:14 Isosorbide Mononitrate Er 30 Mg Tab PO 30 mg Q24H RISSA Administration Metoprolol Tartrate 50 mg 11/13/21 22:00 11/14/21 21:15 Metoprolol Tartrate 50 Mg Tab PO 50 mg BID RISSA Administration Multivitamins 1 each 11/14/21 10:00 11/15/21 10:14 Multivitamins ,Therapeutic Tab PO 1 each DAILY RISSA Administration Pantoprazole Sodium 40 mg 11/14/21 10:00 11/15/21 10:15 Pantoprazole 40 Mg Tab PO 40 mg DAILY RISSA Administration Polyethylene Glycol 17 gm 11/14/21 10:00 11/15/21 10:12 Polyethylene Glycol 3350 17 Gm Powder PO 17 gm QDAY RISSA Administration Tramadol HCl 50 mg 11/13/21 12:00 11/13/21 23:39 Tramadol 50 Mg Tab PO 50 mg Q4HR PRN Administration Pain, Moderate (4-6) Trazodone HCl 50 mg 11/13/21 22:00 11/14/21 21:14 Trazodone 50 Mg Tab PO 50 mg QHS RISSA Administration Valsartan 80 mg 11/14/21 10:00 11/15/21 10:14 Valsartan 160mg Tab PO 80 mg QDAY RISSA Administration
--- NOTE | 2021-11-15 13:19 | Progress Note ---
Subjective Date of service: 11/15/21 Subjective Comment: 11/15: The patient was seen today. The patient is calm with constricted affect, states mood " as usual." He denies depression. He denies any current suicidal/homicidal and denies hallucinations. 11/14:The patient was seen today. He has periods of confusion. He says he slept well he doesn't remember being in the hospital. He denies SI/HI. When asked about hallucinations, he states "I don't know." REVIEW OF SYSTEMS Constitutional: Negative for weight loss ENT: Negative for stridor Respiratory: Negative for cough or hemoptysis All other systems reviewed and are negative MENTAL STATUS General Appearance and Behavior: age appropriate, good eye contact, cooperative with questioning and polite Cooperation: Cooperative Psychomotor Behavior: within normal limits Mood: " as usual" Affect and affective range: Constricted Thought Process: Goal directed Thought Content: Reality oriented Speech: normal Suicidal Ideation: Denies Homicidal Ideation: Denies HI Hallucinations: Denies Impulse Control: normal Insight and Judgment: limited Memory: Limited Attention: Limited Orientation: alert and oriented Assessment Major Depressive Disorder Treatment Plan Patient will be admitted for inpatient psychiatric evaluation, medication adjustment and close monitoring The patient's behavior, mood, sleep and appetite will be closely monitored. Patient will be enrolled in individual and group therapeutic sessions and encouraged to attend. Patient will be provided with a safe and structured environment. Patient's physical health needs will be addressed by the Hospitalist. Hospitalist Consulted Labs including CBC, CMP, Lipid profile and Hemoglobin A1C ordered Social Assessment will be completed and the Edi Specialist will work with patient and family to ensure a suitable and safe disposition Medication adjustment will be made as clinically indicated Continue Lexapro 5mg po daily Usual Wellness Sabianism/Preservation: - Start Trazodone 50 mg po QHS PRN The patient agreed on the treatment plan, understood the risk, benefit, alternat haylee treatment, potential consequence of no treatment, and gave informed consent. Case staffed with Dr. Jolly Legal Status: Voluntary Reaction to Hospitalization: Accepting Medications and Allergies Medications and Allergies Allergies Allergy/AdvReac Type Severity Reaction Status Date / Time No Known Allergies Allergy Verified 11/13/21 01:08 Home Medications Medication Instructions Recorded Confirmed Last Taken Type Acetaminophen [Tylenol] 2 tab PO Q4H PRN 11/13/21 11/13/21 Unknown History Aspirin EC [Halfprin EC] 81 mg PO QDAY 11/13/21 11/13/21 Unknown History AtorvaSTATin [Lipitor] 40 mg PO HS 11/13/21 11/13/21 Unknown History Cholecalciferol (Vitamin D3) 5,000 unit PO DAILY 11/13/21 11/13/21 Unknown History [Vitamin D3] Elderberry Fruit and Flower [Black 1 cap PO DAILY 11/13/21 11/13/21 Unknown History Elderberry 575 mg Cap] Fenofibrate 160 mg PO DAILY 11/13/21 11/13/21 Unknown History Gabapentin [Neurontin] 300 mg PO BID 11/13/21 11/13/21 Unknown History Isosorbide Mononitrate [Isosorbide 30 mg PO Q24H 11/13/21 11/13/21 Unknown History Mononitrate ER] Metoprolol [Lopressor TAB] 50 mg PO BID 11/13/21 11/13/21 Unknown History Mineral Oil/Petrolatum,White 3.5 gm OP Q12H 11/13/21 11/13/21 Unknown History [Artificial Eye Lub 15-83% Oint] Multivitamin with Minerals 1 each PO DAILY 11/13/21 11/13/21 Unknown History [Multivitamins with Minerals] [place]-3 Fatty Acids [Super Twin 1,250 mg PO DAILY 11/13/21 11/13/21 Unknown History Epa-Dha] Omeprazole 40 mg PO QAM 11/13/21 11/13/21 Unknown History Valsartan [Diovan] 80 mg PO DAILY 11/13/21 11/13/21 Unknown History Vit C/E/Zn/Coppr/Lutein/Zeaxan 1 each PO DAILY 11/13/21 11/13/21 Unknown History [Preservision Areds 2 Chew Tab] polyethylene glycoL 3350 [Miralax 17 gm PO QDAY 11/13/21 11/13/21 Unknown History 3350] traMADoL [Ultram] 50 mg PO Q4HR PRN 11/13/21 11/13/21 Unknown History Active Meds: Active Medications Acetaminophen (Acetaminophen 325 Mg Tab) 650 mg PO Q4H PRN PRN Reason: Pain, Mild (1-3) Artificial Tears (Hypromellose 0.5% Ophth Soln 15 Ml) 2 drops OU Q12H PRN PRN Reason: Dry Eye(s) Aspirin (Aspirin Ec 81 Mg Tab) 81 mg PO QDAY [facility] Last Admin: 11/15/21 10:15 Dose: 81 mg Atorvastatin Calcium (Atorvastatin 40 Mg Tab) 40 mg PO HS [facility] Last Admin: 11/14/21 21:14 Dose: 40 mg Cholecalciferol (Cholecalciferol (Vit D3) 5,000 Unit Tab) 5,000 unit PO DAILY [facility] Last Admin: 11/15/21 10:13 Dose: 5,000 unit Fenofibrate (Fenofibrate 145 Mg Tab) 145 mg PO DAILY [facility] Last Admin: 11/15/21 10:15 Dose: 145 mg Fish Oil ([place]-3 Fatty Acids/Fish Oil 1 Gram Cap) 1,000 mg PO QDAY [facility] Last Admin: 11/15/21 10:14 Dose: 1,000 mg Gabapentin (Gabapentin 300 Mg Cap) 300 mg PO BID [facility] Last Admin: 11/15/21 10:14 Dose: 300 mg Isosorbide Mononitrate (Isosorbide Mononitrate Er 30 Mg Tab) 30 mg PO Q24H [facility] Last Admin: 11/15/21 12:40 Dose: Not Given Metoprolol Tartrate (Metoprolol Tartrate 50 Mg Tab) 50 mg PO BID [facility] Last Admin: 11/14/21 21:15 Dose: 50 mg Multivitamins (Multivitamins ,Therapeutic Tab) 1 each PO DAILY [facility] Last Admin: 11/15/21 10:14 Dose: 1 each Pantoprazole Sodium (Pantoprazole 40 Mg Tab) 40 mg PO DAILY [facility] Last Admin: 11/15/21 10:15 Dose: 40 mg Polyethylene Glycol (Polyethylene Glycol 3350 17 Gm Powder) 17 gm PO QDAY [facility] Last Admin: 11/15/21 10:12 Dose: 17 gm Tramadol HCl (Tramadol 50 Mg Tab) 50 mg PO Q4HR PRN PRN Reason: Pain, Moderate (4-6) Last Admin: 11/13/21 23:39 Dose: 50 mg Trazodone HCl (Trazodone 50 Mg Tab) 50 mg PO QHS [facility] Last Admin: 11/14/21 21:14 Dose: 50 mg Valsartan (Valsartan 160mg Tab) 80 mg PO QDAY [facility] Last Admin: 11/15/21 10:14 Dose: 80 mg Results - Results Labs/Vitals: Laboratory Last Values WBC 6.9 K/mm3 (4.5-11.0) 11/13/21 09:58 RBC 3.82 M/mm3 (3.65-5.03) 11/13/21 09:58 Hgb 12.6 gm/dl (11.8-15.2) 11/13/21 09:58 Hct 36.7 % (35.5-45.6) 11/13/21 09:58 MCV 96 fl (84-94) H 11/13/21 09:58 MCH 33 pg (28-32) H 11/13/21 09:58 MCHC 34 % (32-34) 11/13/21 09:58 RDW 16.2 % (13.2-15.2) H 11/13/21 09:58 Plt Count 272 K/mm3 (140-440) 11/13/21 09:58 Lymph % (Auto) 23.4 % (13.4-35.0) 11/13/21 09:58 [place] % (Auto) 9.9 % (0.0-7.3) H 11/13/21 09:58 Eos % (Auto) 0.5 % (0.0-4.3) 11/13/21 09:58 Baso % (Auto) 0.7 % (0.0-1.8) 11/13/21 09:58 Lymph # (Auto) 1.6 K/mm3 (1.2-5.4) 11/13/21 09:58 [place] # (Auto) 0.7 K/mm3 (0.0-0.8) 11/13/21 09:58 Eos # (Auto) 0.0 K/mm3 (0.0-0.4) 11/13/21 09:58 Baso # (Auto) 0.1 K/mm3 (0.0-0.1) 11/13/21 09:58 Seg Neutrophils % 65.5 % (40.0-70.0) 11/13/21 09:58 Seg Neutrophils # 4.5 K/mm3 (1.8-7.7) 11/13/21 09:58 Sodium 138 mmol/L (137-145) 11/13/21 09:58 Potassium 3.6 mmol/L (3.6-5.0) 11/13/21 09:58 Chloride 103.2 mmol/L (98-107) 11/13/21 09:58 Carbon Dioxide 22 mmol/L (22-30) 11/13/21 09:58 Anion Gap 16 mmol/L 11/13/21 09:58 BUN 13 mg/dL (9-20) 11/13/21 09:58 Creatinine 0.9 mg/dL (0.8-1.3) 11/13/21 09:58 Estimated GFR > 60 ml/min 11/13/21 09:58 BUN/Creatinine Ratio 14 % 11/13/21 09:58 Glucose 110 mg/dL (75-100) H 11/13/21 09:58 Hemoglobin A1c 5.6 % (4-6) 11/13/21 09:58 Calcium 9.7 mg/dL (8.4-10.2) 11/13/21 09:58 Total Bilirubin 0.50 mg/dL (0.1-1.2) 11/13/21 09:58 AST 29 units/L (5-40) 11/13/21 09:58 ALT 25 units/L (7-56) 11/13/21 09:58 Alkaline Phosphatase 73 units/L (35-129) 11/13/21 09:58 Total Protein 6.8 g/dL (6.3-8.2) 11/13/21 09:58 Albumin 3.9 g/dL (3.9-5) 11/13/21 09:58 Albumin/Globulin Ratio 1.3 % 11/13/21 09:58 Triglycerides 172 mg/dL (2-149) H 11/13/21 09:58 Cholesterol 191 mg/dL (50-199) 11/13/21 09:58 LDL Cholesterol Direct 121 mg/dL (50-130) 11/13/21 09:58 HDL Cholesterol 39 mg/dL (40-59) L 11/13/21 09:58 Cholesterol/HDL Ratio 4.89 % 11/13/21 09:58 TSH 2.900 mlU/mL (0.270-4.200) 11/13/21 09:58 Last Vital Signs Temp 97.8 F 11/14/21 21:18 Pulse 92 H 11/15/21 10:14 Resp 18 11/14/21 21:18 BP 111/68 11/15/21 10:14 Pulse Ox 97 11/14/21 21:18
[2021-11-15] MEDS: traMADol 50 MG TAB PO PRN (17:11)
[2021-11-15] MEDS: METOPROLOL TARTRATE 50 MG TAB PO SCH ×2 (17:13→21:37)
[2021-11-15] MEDS: traZODone 50 MG TAB PO SCH (21:37)
[2021-11-16] MEDS: OMEGA-3 FATTY ACIDS/FISH OIL 1 GRAM CAP PO SCH (09:53)
[2021-11-16] MEDS: GABAPENTIN 300 MG CAP PO SCH ×2 (09:53→21:40)
[2021-11-16] MEDS: MULTIVITAMINS ,THERAPEUTIC TAB PO SCH (09:53)
[2021-11-16] MEDS: FENOFIBRATE 145 MG TAB PO SCH (09:53)
[2021-11-16] MEDS: ASPIRIN EC 81 MG TAB PO SCH (09:53)
[2021-11-16] MEDS: PANTOPRAZOLE 40 MG TAB PO SCH (09:54)
[2021-11-16] MEDS: CHOLECALCIFEROL (VIT D3) 5,000 UNIT TAB PO SCH (09:54)
--- NOTE | 2021-11-16 10:20 | Progress Note ---
Subjective Date of service: 11/16/21 Subjective Comment: 11/16:The patient was seen today. The patient is calm and cooperative. He states he is ok" everything is working." He denies suicidal ideation " that's from somebody but they said it was me." he continues to present with periods of confusion. He denies any current suicidal/homicidal and denies hallucinations. 11/15: The patient was seen today. The patient is calm with constricted affect, states mood " as usual." He denies depression. He denies any current suicidal/homicidal and denies hallucinations. 11/14:The patient was seen today. He has periods of confusion. He says he slept well he doesn't remember being in the hospital. He denies SI/HI. When asked about hallucinations, he states "I don't know." REVIEW OF SYSTEMS Constitutional: Negative for weight loss ENT: Negative for stridor Respiratory: Negative for cough or hemoptysis All other systems reviewed and are negative MENTAL STATUS General Appearance and Behavior: age appropriate, good eye contact, cooperative with questioning and polite Cooperation: Cooperative Psychomotor Behavior: within normal limits Mood: "ok" Affect and affective range: Constricted Thought Process: circumstantial Thought Content: Reality oriented Speech: normal Suicidal Ideation: Denies Homicidal Ideation: Denies HI Hallucinations: Denies Impulse Control: normal Insight and Judgment: limited Memory: Limited Attention: Limited Orientation: alert and oriented Assessment Major Depressive Disorder Treatment Plan Patient will be admitted for inpatient psychiatric evaluation, medication adjustment and close monitoring The patient's behavior, mood, sleep and appetite will be closely monitored. Patient will be enrolled in individual and group therapeutic sessions and encouraged to attend. Patient will be provided with a safe and structured environment. Patient's physical health needs will be addressed by the Hospitalist. Hospitalist Consulted Labs including CBC, CMP, Lipid profile and Hemoglobin A1C ordered Social Assessment will be completed and the Ski Instructor will work with patient and family to ensure a suitable and safe disposition Medication adjustment will be made as clinically indicated Continue Lexapro 5mg po daily Usual Wellness Tenriism/Preservation: - Start Trazodone 50 mg po QHS PRN The patient agreed on the treatment plan, understood the risk, benefit, alternative treatment, potential consequence of no treatment, and gave informed consent. Case staffed with Dr. Jolly Legal Status: Voluntary Reaction to Hospitalization: Accepting Medications and Allergies Medications and Allergies Medications and Allergies Allergies Allergy/AdvReac Type Severity Reaction Status Date / Time No Known Allergies Allergy Verified 11/13/21 01:08 Home Medications Medication Instructions Recorded Confirmed Last Taken Type Acetaminophen [Tylenol] 2 tab PO Q4H PRN 11/13/21 11/13/21 Unknown History Aspirin EC [Halfprin EC] 81 mg PO QDAY 11/13/21 11/13/21 Unknown History AtorvaSTATin [Lipitor] 40 mg PO HS 11/13/21 11/13/21 Unknown History Cholecalciferol (Vitamin D3) 5,000 unit PO DAILY 11/13/21 11/13/21 Unknown History [Vitamin D3] Elderberry Fruit and Flower [Black 1 cap PO DAILY 11/13/21 11/13/21 Unknown History Elderberry 575 mg Cap] Fenofibrate 160 mg PO DAILY 11/13/21 11/13/21 Unknown History Gabapentin [Neurontin] 300 mg PO BID 11/13/21 11/13/21 Unknown History Isosorbide Mononitrate [Isosorbide 30 mg PO Q24H 11/13/21 11/13/21 Unknown History Mononitrate ER] Metoprolol [Lopressor TAB] 50 mg PO BID 11/13/21 11/13/21 Unknown History Mineral Oil/Petrolatum,White 3.5 gm OP Q12H 11/13/21 11/13/21 Unknown History [Artificial Eye Lub 15-83% Oint] Multivitamin with Minerals 1 each PO DAILY 11/13/21 11/13/21 Unknown History [Multivitamins with Minerals] [place]-3 Fatty Acids [Super Twin 1,250 mg PO DAILY 11/13/21 11/13/21 Unknown History Epa-Dha] Omeprazole 40 mg PO QAM 11/13/21 11/13/21 Unknown History Valsartan [Diovan] 80 mg PO DAILY 11/13/21 11/13/21 Unknown History Vit C/E/Zn/Coppr/Lutein/Zeaxan 1 each PO DAILY 11/13/21 11/13/21 Unknown History [Preservision Areds 2 Chew Tab] polyethylene glycoL 3350 [Miralax 17 gm PO QDAY 11/13/21 11/13/21 Unknown History 3350] traMADoL [Ultram] 50 mg PO Q4HR PRN 11/13/21 11/13/21 Unknown History Active Meds: Active Medications Acetaminophen (Acetaminophen 325 Mg Tab) 650 mg PO Q4H PRN PRN Reason: Pain, Mild (1-3) Artificial Tears (Hypromellose 0.5% Ophth Soln 15 Ml) 2 drops OU Q12H PRN PRN Reason: Dry Eye(s) Aspirin (Aspirin Ec 81 Mg Tab) 81 mg PO QDAY [facility] Last Admin: 11/16/21 09:53 Dose: 81 mg Atorvastatin Calcium (Atorvastatin 40 Mg Tab) 40 mg PO HS [facility] Last Admin: 11/15/21 21:37 Dose: 40 mg Cholecalciferol (Cholecalciferol (Vit D3) 5,000 Unit Tab) 5,000 unit PO DAILY [facility] Last Admin: 11/16/21 09:54 Dose: 5,000 unit Escitalopram Oxalate (Escitalopram 10 Mg Tab) 5 mg PO QDAY [facility] Fenofibrate (Fenofibrate 145 Mg Tab) 145 mg PO DAILY [facility] Last Admin: 11/16/21 09:53 Dose: 145 mg Fish Oil ([place]-3 Fatty Acids/Fish Oil 1 Gram Cap) 1,000 mg PO QDAY [facility] Last Admin: 11/16/21 09:53 Dose: 1,000 mg Gabapentin (Gabapentin 300 Mg Cap) 300 mg PO BID [facility] Last Admin: 11/16/21 09:53 Dose: 300 mg Isosorbide Mononitrate (Isosorbide Mononitrate Er 30 Mg Tab) 30 mg PO Q24H [facility] Last Admin: 11/15/21 12:40 Dose: Not Given Metoprolol Tartrate (Metoprolol Tartrate 50 Mg Tab) 50 mg PO BID [facility] Last Admin: 11/15/21 21:37 Dose: Not Given Multivitamins (Multivitamins ,Therapeutic Tab) 1 each PO DAILY [facility] Last Admin: 11/16/21 09:53 Dose: 1 each Pantoprazole Sodium (Pantoprazole 40 Mg Tab) 40 mg PO DAILY [facility] Last Admin: 11/16/21 09:54 Dose: 40 mg Polyethylene Glycol (Polyethylene Glycol 3350 17 Gm Powder) 17 gm PO QDAY [facility] Last Admin: 11/15/21 10:12 Dose: 17 gm Tramadol HCl (Tramadol 50 Mg Tab) 50 mg PO Q4HR PRN PRN Reason: Pain, Moderate (4-6) Last Admin: 11/15/21 17:11 Dose: 50 mg Trazodone HCl (Trazodone 50 Mg Tab) 50 mg PO QHS [facility] Last Admin: 11/15/21 21:37 Dose: 50 mg Valsartan (Valsartan 160mg Tab) 80 mg PO QDAY [facility] Last Admin: 11/15/21 10:14 Dose: 80 mg Results - Results Labs/Vitals: Laboratory Last Values WBC 6.9 K/mm3 (4.5-11.0) 11/13/21 09:58 RBC 3.82 M/mm3 (3.65-5.03) 11/13/21 09:58 Hgb 12.6 gm/dl (11.8-15.2) 11/13/21 09:58 Hct 36.7 % (35.5-45.6) 11/13/21 09:58 MCV 96 fl (84-94) H 11/13/21 09:58 MCH 33 pg (28-32) H 11/13/21 09:58 MCHC 34 % (32-34) 11/13/21 09:58 RDW 16.2 % (13.2-15.2) H 11/13/21 09:58 Plt Count 272 K/mm3 (140-440) 11/13/21 09:58 Lymph % (Auto) 23.4 % (13.4-35.0) 11/13/21 09:58 [place] % (Auto) 9.9 % (0.0-7.3) H 11/13/21 09:58 Eos % (Auto) 0.5 % (0.0-4.3) 11/13/21 09:58 Baso % (Auto) 0.7 % (0.0-1.8) 11/13/21 09:58 Lymph # (Auto) 1.6 K/mm3 (1.2-5.4) 11/13/21 09:58 [place] # (Auto) 0.7 K/mm3 (0.0-0.8) 11/13/21 09:58 Eos # (Auto) 0.0 K/mm3 (0.0-0.4) 11/13/21 09:58 Baso # (Auto) 0.1 K/mm3 (0.0-0.1) 11/13/21 09:58 Seg Neutrophils % 65.5 % (40.0-70.0) 11/13/21 09:58 Seg Neutrophils # 4.5 K/mm3 (1.8-7.7) 11/13/21 09:58 Sodium 138 mmol/L (137-145) 11/13/21 09:58 Potassium 3.6 mmol/L (3.6-5.0) 11/13/21 09:58 Chloride 103.2 mmol/L (98-107) 11/13/21 09:58 Carbon Dioxide 22 mmol/L (22-30) 11/13/21 09:58 Anion Gap 16 mmol/L 11/13/21 09:58 BUN 13 mg/dL (9-20) 11/13/21 09:58 Creatinine 0.9 mg/dL (0.8-1.3) 11/13/21 09:58 Estimated GFR > 60 ml/min 11/13/21 09:58 BUN/Creatinine Ratio 14 % 11/13/21 09:58 Glucose 110 mg/dL (75-100) H 11/13/21 09:58 Hemoglobin A1c 5.6 % (4-6) 11/13/21 09:58 Calcium 9.7 mg/dL (8.4-10.2) 11/13/21 09:58 Total Bilirubin 0.50 mg/dL (0.1-1.2) 11/13/21 09:58 AST 29 units/L (5-40) 11/13/21 09:58 ALT 25 units/L (7-56) 11/13/21 09:58 Alkaline Phosphatase 73 units/L (35-129) 11/13/21 09:58 Total Protein 6.8 g/dL (6.3-8.2) 11/13/21 09:58 Albumin 3.9 g/dL (3.9-5) 11/13/21 09:58 Albumin/Globulin Ratio 1.3 % 11/13/21 09:58 Triglycerides 172 mg/dL (2-149) H 11/13/21 09:58 Cholesterol 191 mg/dL (50-199) 11/13/21 09:58 LDL Cholesterol Direct 121 mg/dL (50-130) 11/13/21 09:58 HDL Cholesterol 39 mg/dL (40-59) L 11/13/21 09:58 Cholesterol/HDL Ratio 4.89 % 11/13/21 09:58 TSH 2.900 mlU/mL (0.270-4.200) 11/13/21 09:58 Last Vital Signs Temp 98.1 F 11/16/21 07:58 Pulse 100 H 11/16/21 07:58 Resp 16 11/16/21 07:58 BP 91/56 11/16/21 07:58 Pulse Ox 95 11/16/21 07:58
[2021-11-16] MEDS: VALSARTAN 160MG TAB PO SCH (10:29)
[2021-11-16] MEDS: METOPROLOL TARTRATE 50 MG TAB PO SCH ×2 (10:29→21:39)
[2021-11-16] MEDS: POLYETHYLENE GLYCOL 3350 17 GM POWDER PO SCH (10:30)
[2021-11-16] MEDS: ESCITALOPRAM 10 MG TAB PO SCH (15:04)
[2021-11-16] MEDS: traZODone 50 MG TAB PO SCH (21:38)
[2021-11-17] MEDS: GABAPENTIN 300 MG CAP PO SCH ×2 (09:39→21:25)
[2021-11-17] MEDS: MULTIVITAMINS ,THERAPEUTIC TAB PO SCH (09:39)
[2021-11-17] MEDS: OMEGA-3 FATTY ACIDS/FISH OIL 1 GRAM CAP PO SCH (09:39)
[2021-11-17] MEDS: PANTOPRAZOLE 40 MG TAB PO SCH (09:40)
[2021-11-17] MEDS: CHOLECALCIFEROL (VIT D3) 5,000 UNIT TAB PO SCH (09:40)
[2021-11-17] MEDS: FENOFIBRATE 145 MG TAB PO SCH (09:40)
[2021-11-17] MEDS: ESCITALOPRAM 10 MG TAB PO SCH (09:41)
[2021-11-17] MEDS: METOPROLOL TARTRATE 50 MG TAB PO SCH ×2 (09:42→21:25)
[2021-11-17] MEDS: VALSARTAN 160MG TAB PO SCH (09:43)
[2021-11-17] MEDS: POLYETHYLENE GLYCOL 3350 17 GM POWDER PO SCH (09:49)
[2021-11-17] MEDS: ASPIRIN EC 81 MG TAB PO SCH (09:49)
--- NOTE | 2021-11-17 10:03 | Progress Note ---
Subjective Date of service: 11/17/21 Subjective Comment: 11/17: The patient was seen at breakfast socializing with peer. He reports doing well and mood is good. He states sleep and appetite as good. He denies any current suicidal/homicidal ideation and denies hallucinations. No changes made today. 11/16:The patient was seen today. The patient is calm and cooperative. He states he is ok" everything is working." He denies suicidal ideation " that's from somebody but they said it was me." he continues to present with periods of confusion. He denies any current suicidal/homicidal and denies hallucinations. 11/15: The patient was seen today. The patient is calm with constricted affect, states mood " as usual." He denies depression. He denies any current suicidal/homicidal and denies hallucinations. 11/14:The patient was seen today. He has periods of confusion. He says he slept well he doesn't remember being in the hospital. He denies SI/HI. When asked about hallucinations, he states "I don't know." REVIEW OF SYSTEMS Constitutional: Negative for weight loss ENT: Negative for stridor Respiratory: Negative for cough or hemoptysis All other systems reviewed and are negative MENTAL STATUS General Appearance and Behavior: age appropriate, good eye contact, cooperative with questioning and polite Cooperation: Cooperative Psychomotor Behavior: within normal limits Mood: "good" Affect and affective range: Constricted Thought Process: circumstantial Thought Content: Reality oriented Speech: normal Suicidal Ideation: Denies Homicidal Ideation: Denies HI Hallucinations: Denies Impulse Control: normal Insight and Judgment: limited Memory: Limited Attention: Limited Orientation: alert and oriented Assessment Major Depressive Disorder Treatment Plan Patient will be admitted for inpatient psychiatric evaluation, medication adjustment and close monitoring The patient's behavior, mood, sleep and appetite will be closely monitored. Patient will be enrolled in individual and group therapeutic sessions and encouraged to attend. Patient will be provided with a safe and structured environment. Patient's physical health needs will be addressed by the Hospitalist. Hospitalist Consulted Labs including CBC, CMP, Lipid profile and Hemoglobin A1C ordered Social Assessment will be completed and the Bell Person will work with patient and family to ensure a suitable and safe disposition Medication adjustment will be made as clinically indicated Continue Lexapro 5mg po daily Usual Wellness Hindu/Preservation: - Start Trazodone 50 mg po QHS PRN The patient agreed on the treatment plan, understood the risk, benefit, alter false pass treatment, potential consequence of no treatment, and gave informed consent. Case staffed with Dr. Jolly Legal Status: Voluntary Reaction to Hospitalization: Accepting Medications and Allergies Medications and Allergies Allergies Allergy/AdvReac Type Severity Reaction Status Date / Time No Known Allergies Allergy Verified 11/13/21 01:08 Home Medications Medication Instructions Recorded Confirmed Last Taken Type Acetaminophen [Tylenol] 2 tab PO Q4H PRN 11/13/21 11/13/21 Unknown History Aspirin EC [Halfprin EC] 81 mg PO QDAY 11/13/21 11/13/21 Unknown History AtorvaSTATin [Lipitor] 40 mg PO HS 11/13/21 11/13/21 Unknown History Cholecalciferol (Vitamin D3) 5,000 unit PO DAILY 11/13/21 11/13/21 Unknown History [Vitamin D3] Elderberry Fruit and Flower [Black 1 cap PO DAILY 11/13/21 11/13/21 Unknown History Elderberry 575 mg Cap] Fenofibrate 160 mg PO DAILY 11/13/21 11/13/21 Unknown History Gabapentin [Neurontin] 300 mg PO BID 11/13/21 11/13/21 Unknown History Isosorbide Mononitrate [Isosorbide 30 mg PO Q24H 11/13/21 11/13/21 Unknown History Mononitrate ER] Metoprolol [Lopressor TAB] 50 mg PO BID 11/13/21 11/13/21 Unknown History Mineral Oil/Petrolatum,White 3.5 gm OP Q12H 11/13/21 11/13/21 Unknown History [Artificial Eye Lub 15-83% Oint] Multivitamin with Minerals 1 each PO DAILY 11/13/21 11/13/21 Unknown History [Multivitamins with Minerals] [place]-3 Fatty Acids [Super Twin 1,250 mg PO DAILY 11/13/21 11/13/21 Unknown History Epa-Dha] Omeprazole 40 mg PO QAM 11/13/21 11/13/21 Unknown History Valsartan [Diovan] 80 mg PO DAILY 11/13/21 11/13/21 Unknown History Vit C/E/Zn/Coppr/Lutein/Zeaxan 1 each PO DAILY 11/13/21 11/13/21 Unknown History [Preservision Areds 2 Chew Tab] polyethylene glycoL 3350 [Miralax 17 gm PO QDAY 11/13/21 11/13/21 Unknown History 3350] traMADoL [Ultram] 50 mg PO Q4HR PRN 11/13/21 11/13/21 Unknown History Active Meds: Active Medications Acetaminophen (Acetaminophen 325 Mg Tab) 650 mg PO Q4H PRN PRN Reason: Pain, Mild (1-3) Artificial Tears (Hypromellose 0.5% Ophth Soln 15 Ml) 2 drops OU Q12H PRN PRN Reason: Dry Eye(s) Aspirin (Aspirin Ec 81 Mg Tab) 81 mg PO QDAY [facility] Last Admin: 11/17/21 09:49 Dose: 81 mg Atorvastatin Calcium (Atorvastatin 40 Mg Tab) 40 mg PO HS [facility] Last Admin: 11/16/21 21:41 Dose: 40 mg Cholecalciferol (Cholecalciferol (Vit D3) 5,000 Unit Tab) 5,000 unit PO DAILY [facility] Last Admin: 11/17/21 09:40 Dose: 5,000 unit Escitalopram Oxalate (Escitalopram 10 Mg Tab) 5 mg PO QDAY [facility] Last Admin: 11/17/21 09:41 Dose: 5 mg Fenofibrate (Fenofibrate 145 Mg Tab) 145 mg PO DAILY [facility] Last Admin: 11/17/21 09:40 Dose: 145 mg Fish Oil ([place]-3 Fatty Acids/Fish Oil 1 Gram Cap) 1,000 mg PO QDAY [facility] Last Admin: 11/17/21 09:39 Dose: 1,000 mg Gabapentin (Gabapentin 300 Mg Cap) 300 mg PO BID [facility] Last Admin: 11/17/21 09:39 Dose: 300 mg Isosorbide Mononitrate (Isosorbide Mononitrate Er 30 Mg Tab) 30 mg PO Q24H [facility] Last Admin: 11/16/21 12:00 Dose: Not Given Metoprolol Tartrate (Metoprolol Tartrate 50 Mg Tab) 50 mg PO BID [facility] Last Admin: 11/17/21 09:42 Dose: 50 mg Multivitamins (Multivitamins ,Therapeutic Tab) 1 each PO DAILY [facility] Last Admin: 11/17/21 09:39 Dose: 1 each Pantoprazole Sodium (Pantoprazole 40 Mg Tab) 40 mg PO DAILY [facility] Last Admin: 11/17/21 09:40 Dose: 40 mg Polyethylene Glycol (Polyethylene Glycol 3350 17 Gm Powder) 17 gm PO QDAY [facility] Last Admin: 11/17/21 09:49 Dose: Not Given Tramadol HCl (Tramadol 50 Mg Tab) 50 mg PO Q4HR PRN PRN Reason: Pain, Moderate (4-6) Last Admin: 11/15/21 17:11 Dose: 50 mg Trazodone HCl (Trazodone 50 Mg Tab) 50 mg PO QHS [facility] Last Admin: 11/16/21 21:38 Dose: 50 mg Valsartan (Valsartan 160mg Tab) 80 mg PO QDAY [facility] Last Admin: 11/17/21 09:43 Dose: 80 mg Results - Results Labs/Vitals: Laboratory Last Values WBC 6.9 K/mm3 (4.5-11.0) 11/13/21 09:58 RBC 3.82 M/mm3 (3.65-5.03) 11/13/21 09:58 Hgb 12.6 gm/dl (11.8-15.2) 11/13/21 09:58 Hct 36.7 % (35.5-45.6) 11/13/21 09:58 MCV 96 fl (84-94) H 11/13/21 09:58 MCH 33 pg (28-32) H 11/13/21 09:58 MCHC 34 % (32-34) 11/13/21 09:58 RDW 16.2 % (13.2-15.2) H 11/13/21 09:58 Plt Count 272 K/mm3 (140-440) 11/13/21 09:58 Lymph % (Auto) 23.4 % (13.4-35.0) 11/13/21 09:58 [place] % (Auto) 9.9 % (0.0-7.3) H 11/13/21 09:58 Eos % (Auto) 0.5 % (0.0-4.3) 11/13/21 09:58 Baso % (Auto) 0.7 % (0.0-1.8) 11/13/21 09:58 Lymph # (Auto) 1.6 K/mm3 (1.2-5.4) 11/13/21 09:58 [place] # (Auto) 0.7 K/mm3 (0.0-0.8) 11/13/21 09:58 Eos # (Auto) 0.0 K/mm3 (0.0-0.4) 11/13/21 09:58 Baso # (Auto) 0.1 K/mm3 (0.0-0.1) 11/13/21 09:58 Seg Neutrophils % 65.5 % (40.0-70.0) 11/13/21 09:58 Seg Neutrophils # 4.5 K/mm3 (1.8-7.7) 11/13/21 09:58 Sodium 138 mmol/L (137-145) 11/13/21 09:58 Potassium 3.6 mmol/L (3.6-5.0) 11/13/21 09:58 Chloride 103.2 mmol/L (98-107) 11/13/21 09:58 Carbon Dioxide 22 mmol/L (22-30) 11/13/21 09:58 Anion Gap 16 mmol/L 11/13/21 09:58 BUN 13 mg/dL (9-20) 11/13/21 09:58 Creatinine 0.9 mg/dL (0.8-1.3) 11/13/21 09:58 Estimated GFR > 60 ml/min 11/13/21 09:58 BUN/Creatinine Ratio 14 % 11/13/21 09:58 Glucose 110 mg/dL (75-100) H 11/13/21 09:58 Hemoglobin A1c 5.6 % (4-6) 11/13/21 09:58 Calcium 9.7 mg/dL (8.4-10.2) 11/13/21 09:58 Total Bilirubin 0.50 mg/dL (0.1-1.2) 11/13/21 09:58 AST 29 units/L (5-40) 11/13/21 09:58 ALT 25 units/L (7-56) 11/13/21 09:58 Alkaline Phosphatase 73 units/L (35-129) 11/13/21 09:58 Total Protein 6.8 g/dL (6.3-8.2) 11/13/21 09:58 Albumin 3.9 g/dL (3.9-5) 11/13/21 09:58 Albumin/Globulin Ratio 1.3 % 11/13/21 09:58 Triglycerides 172 mg/dL (2-149) H 11/13/21 09:58 Cholesterol 191 mg/dL (50-199) 11/13/21 09:58 LDL Cholesterol Direct 121 mg/dL (50-130) 11/13/21 09:58 HDL Cholesterol 39 mg/dL (40-59) L 11/13/21 09:58 Cholesterol/HDL Ratio 4.89 % 11/13/21 09:58 TSH 2.900 mlU/mL (0.270-4.200) 11/13/21 09:58 Last Vital Signs Temp 97.4 F L 11/17/21 08:34 Pulse 87 11/17/21 09:43 Resp 18 11/17/21 08:34 BP 138/80 11/17/21 09:43 Pulse Ox 96 11/16/21 20:56
--- NOTE | 2021-11-17 19:28 | Progress Note ---
Assessment and Plan - Patient Problems (1) Major depression Current Visit: Yes Status: Acute Qualifiers: Psychotic features: with psychotic features Plan to address problem: Continue medical management, supportive care. Behavior change counseling, cognitive behavioral therapy. (2) Vascular dementia with behavioral disturbance Current Visit: Yes Status: Acute Plan to address problem: Verbal prompting, verbal redirection, benzodiazepine therapy as clinically indicated (3) Cerebral atherosclerosis Current Visit: Yes Status: Acute Plan to address problem: Risk factor reduction, antiplatelet therapy as clinically indicated. (4) Hypertension Current Visit: Yes Status: Acute Qualifiers: Hypertension type: primary hypertension Qualified Code(s): I10 - Essential (primary) hypertension Plan to address problem: Monitor blood pressure every shift, continue medical management (5) Hyperlipidemia Current Visit: Yes Status: Acute Qualifiers: Hyperlipidemia type: mixed hyperlipidemia Qualified Code(s): E78.2 - Mixed hyperlipidemia Plan to address problem: Low-cholesterol diet, statin therapy, supportive care. (6) Obesity Current Visit: Yes Status: Acute Plan to address problem: Balanced diet, increase physical activity discharge (7) Osteoarthritis Current Visit: Yes Status: Acute Plan to address problem: Pain control, supportive care. (8) Advance care planning Current Visit: Yes Status: Acute Plan to address problem: Disease education data, care plan discussed, diagnoses discussed, patient is full code, +30 minutes. (9) Preventative health care Current Visit: Yes Status: Acute Plan to address problem: Home safety counseling, outpatient follow-up with primary care physician for all age and risk factor appropriate screening test. +30 minutes. History Interval history: 76-year-old male with Vascular Dementia with behavioral disturbance, Cerebral Atherosclerosis, HTN, HLD, Anemia of chronic disease, GERD, Obesity, OA, MDD admitted to [facility] for psychiatric stabilization. Consult placed by Dr. Sauceda for medical management. Patient seen and evaluated in the recreation room. Patient appears to be at baseline level of cognition and function. No reported nursing events. Hospitalist Physical - Constitutional Vitals: Temp Pulse Resp BP Pulse Ox 97.4 F L 76 18 131/68 96 11/17/21 08:34 11/17/21 14:23 11/17/21 08:34 11/17/21 14:23 11/16/21 20:56 General appearance: Present: no acute distress, obese - EENT Eyes: Present: PERRL, EOM intact ENT: hearing decreased - Neck Neck: Present: supple - Respiratory Respiratory effort: normal Respiratory: bilateral: diminished - Cardiovascular Rhythm: regular Heart Sounds: Present: S1 & S2 - Extremities Extremities: no ischemia Peripheral Pulses: within normal limits - Abdominal General gastrointestinal: soft, non-tender, non-distended - Integumentary Integumentary: Present: clear, dry - Psychiatric Psychiatric: cooperative - Neurologic Neurologic: CNII-XII intact Results - Labs CBC & Chem 7: 11/13/21 09:58 11/13/21 09:58 Labs: Laboratory Last Values WBC 6.9 K/mm3 (4.5-11.0) 11/13/21 09:58 RBC 3.82 M/mm3 (3.65-5.03) 11/13/21 09:58 Hgb 12.6 gm/dl (11.8-15.2) 11/13/21 09:58 Hct 36.7 % (35.5-45.6) 11/13/21 09:58 MCV 96 fl (84-94) H 11/13/21 09:58 MCH 33 pg (28-32) H 11/13/21 09:58 MCHC 34 % (32-34) 11/13/21 09:58 RDW 16.2 % (13.2-15.2) H 11/13/21 09:58 Plt Count 272 K/mm3 (140-440) 11/13/21 09:58 Lymph % (Auto) 23.4 % (13.4-35.0) 11/13/21 09:58 Prentiss % (Auto) 9.9 % (0.0-7.3) H 11/13/21 09:58 Eos % (Auto) 0.5 % (0.0-4.3) 11/13/21 09:58 Baso % (Auto) 0.7 % (0.0-1.8) 11/13/21 09:58 Lymph # (Auto) 1.6 K/mm3 (1.2-5.4) 11/13/21 09:58 Prentiss # (Auto) 0.7 K/mm3 (0.0-0.8) 11/13/21 09:58 Eos # (Auto) 0.0 K/mm3 (0.0-0.4) 11/13/21 09:58 Baso # (Auto) 0.1 K/mm3 (0.0-0.1) 11/13/21 09:58 Seg Neutrophils % 65.5 % (40.0-70.0) 11/13/21 09:58 Seg Neutrophils # 4.5 K/mm3 (1.8-7.7) 11/13/21 09:58 Sodium 138 mmol/L (137-145) 11/13/21 09:58 Potassium 3.6 mmol/L (3.6-5.0) 11/13/21 09:58 Chloride 103.2 mmol/L (98-107) 11/13/21 09:58 Carbon Dioxide 22 mmol/L (22-30) 11/13/21 09:58 Anion Gap 16 mmol/L 11/13/21 09:58 BUN 13 mg/dL (9-20) 11/13/21 09:58 Creatinine 0.9 mg/dL (0.8-1.3) 11/13/21 09:58 Estimated GFR > 60 ml/min 11/13/21 09:58 BUN/Creatinine Ratio 14 % 11/13/21 09:58 Glucose 110 mg/dL (75-100) H 11/13/21 09:58 Hemoglobin A1c 5.6 % (4-6) 11/13/21 09:58 Calcium 9.7 mg/dL (8.4-10.2) 11/13/21 09:58 Total Bilirubin 0.50 mg/dL (0.1-1.2) 11/13/21 09:58 AST 29 units/L (5-40) 11/13/21 09:58 ALT 25 units/L (7-56) 11/13/21 09:58 Alkaline Phosphatase 73 units/L (35-129) 11/13/21 09:58 Total Protein 6.8 g/dL (6.3-8.2) 11/13/21 09:58 Albumin 3.9 g/dL (3.9-5) 11/13/21 09:58 Albumin/Globulin Ratio 1.3 % 11/13/21 09:58 Triglycerides 172 mg/dL (2-149) H 11/13/21 09:58 Cholesterol 191 mg/dL (50-199) 11/13/21 09:58 LDL Cholesterol Direct 121 mg/dL (50-130) 11/13/21 09:58 HDL Cholesterol 39 mg/dL (40-59) L 11/13/21 09:58 Cholesterol/HDL Ratio 4.89 % 11/13/21 09:58 TSH 2.900 mlU/mL (0.270-4.200) 11/13/21 09:58 Sears/IV: Voiding Method Toilet Active Medications - Current Medications Current Medications: Generic Name Dose Route Start Last Admin Trade Name Freq PRN Reason Stop Dose Admin Acetaminophen 650 mg 11/13/21 11:24 Acetaminophen 325 Mg Tab PO Q4H PRN Pain, Mild (1-3) Artificial Tears 2 drops 11/13/21 11:26 Hypromellose 0.5% Ophth Soln 15 Ml OU Q12H PRN Dry Eye(s) Aspirin 81 mg 11/14/21 10:00 11/17/21 09:49 Aspirin Ec 81 Mg Tab PO 81 mg QDAY RISSA Administration Atorvastatin Calcium 40 mg 11/13/21 22:00 11/16/21 21:41 Atorvastatin 40 Mg Tab PO 40 mg HS RISSA Administration Cholecalciferol 5,000 unit 11/14/21 10:00 11/17/21 09:40 Cholecalciferol (Vit D3) 5,000 Unit Tab PO 5,000 unit DAILY RISSA Administration Escitalopram Oxalate 5 mg 11/16/21 10:00 11/17/21 09:41 Escitalopram 10 Mg Tab PO 5 mg QDAY RISSA Administration Fenofibrate 145 mg 11/14/21 10:00 11/17/21 09:40 Fenofibrate 145 Mg Tab PO 145 mg DAILY RISSA Administration Fish Oil 1,000 mg 11/14/21 10:00 11/17/21 09:39 [place]-3 Fatty Acids/Fish Oil 1 Gram Cap PO 1,000 mg QDAY RISSA Administration Gabapentin 300 mg 11/13/21 22:00 11/17/21 09:39 Gabapentin 300 Mg Cap PO 300 mg BID RISSA Administration Isosorbide Mononitrate 30 mg 11/13/21 12:00 11/17/21 14:23 Isosorbide Mononitrate Er 30 Mg Tab PO 30 mg Q24H RISSA Administration Metoprolol Tartrate 50 mg 11/13/21 22:00 11/17/21 09:42 Metoprolol Tartrate 50 Mg Tab PO 50 mg BID RISSA Administration Multivitamins 1 each 11/14/21 10:00 11/17/21 09:39 Multivitamins ,Therapeutic Tab PO 1 each DAILY RISSA Administration Pantoprazole Sodium 40 mg 11/14/21 10:00 11/17/21 09:40 Pantoprazole 40 Mg Tab PO 40 mg DAILY RISSA Administration Polyethylene Glycol 17 gm 11/14/21 10:00 11/17/21 09:49 Polyethylene Glycol 3350 17 Gm Powder PO Not Given QDAY RISSA Tramadol HCl 50 mg 11/13/21 12:00 11/15/21 17:11 Tramadol 50 Mg Tab PO 50 mg Q4HR PRN Administration Pain, Moderate (4-6) Trazodone HCl 50 mg 11/13/21 22:00 11/16/21 21:38 Trazodone 50 Mg Tab PO 50 mg QHS RISSA Administration Valsartan 80 mg 11/14/21 10:00 11/17/21 09:43 Valsartan 160mg Tab PO 80 mg QDAY RISSA Administration
[2021-11-17] MEDS: traZODone 50 MG TAB PO SCH (21:25)
--- NOTE | 2021-11-18 09:56 | Progress Note ---
Subjective Date of service: 11/18/21 Subjective Comment: 11/18: The patient was seen today. He reports feeling weird " my head is cold." He states sleep and appetite as good. He denies any current suicidal/homicidal ideation and denies hallucinations. No changes made today. 11/17: The patient was seen at breakfast socializing with peer. He reports doing well and mood is good. He states sleep and appetite as good. He denies any current suicidal/homicidal ideation and denies hallucinations. No changes made today. 11/16:The patient was seen today. The patient is calm and cooperative. He states he is ok" everything is working." He denies suicidal ideation " that's from somebody but they said it was me." he continues to present with periods of confusion. He denies any current suicidal/homicidal and denies hallucinations. 11/15: The patient was seen today. The patient is calm with constricted affect, states mood " as usual." He denies depression. He denies any current suicidal/homicidal and denies hallucinations. 11/14:The patient was seen today. He has periods of confusion. He says he slept well he doesn't remember being in the hospital. He denies SI/HI. When asked about hallucinations, he states "I don't know." REVIEW OF SYSTEMS Constitutional: Negative for weight loss ENT: Negative for stridor Respiratory: Negative for cough or hemoptysis All other systems reviewed and are negative MENTAL STATUS General Appearance and Behavior: age appropriate, good eye contact, cooperative with questioning and polite Cooperation: Cooperative Psychomotor Behavior: within normal limits Mood: ok Affect and affective range: Constricted Thought Process: goal directed Thought Content: Reality oriented Speech: normal Suicidal Ideation: Denies Homicidal Ideation: Denies HI Hallucinations: Denies Impulse Control: normal Insight and Judgment: limited Memory: Limited Attention: Limited Orientation: alert and oriented Assessment Major Depressive Disorder Treatment Plan Patient will be admitted for inpatient psychiatric evaluation, medication adjustment and close monitoring The patient's behavior, mood, sleep and appetite will be closely monitored. Patient will be enrolled in individual and group therapeutic sessions and encouraged to attend. Patient will be provided with a safe and structured environment. Patient's physical health needs will be addressed by the Hospitalist. Hospitalist Consulted Labs including CBC, CMP, Lipid profile and Hemoglobin A1C ordered Social Assessment will be completed and the Route Delivery Service Driver will work with patient and family to ensure a suitable and safe disposition Medication adjustment will be made as clinically indicated Continue Lexapro 5mg po daily Usual Wellness Hinduism/Preservation: - Start Trazodone 50 mg po QHS PRN The patient agreed on the treatment plan, understood the risk, benefit, alternative treatment, potential consequence of no treatment, and gave informed consent. Case staffed with Dr. Jolly Legal Status: Voluntary Reaction to Hospitalization: Accepting Medications and Allergies Medications and Allergies Allergies Allergy/AdvReac Type Severity Reaction Status Date / Time No Known Allergies Allergy Verified 11/13/21 01:08 Home Medications Medication Instructions Recorded Confirmed Last Taken Type Acetaminophen [Tylenol] 2 tab PO Q4H PRN 11/13/21 11/13/21 Unknown History Aspirin EC [Halfprin EC] 81 mg PO QDAY 11/13/21 11/13/21 Unknown History AtorvaSTATin [Lipitor] 40 mg PO HS 11/13/21 11/13/21 Unknown History Cholecalciferol (Vitamin D3) 5,000 unit PO DAILY 11/13/21 11/13/21 Unknown History [Vitamin D3] Elderberry Fruit and Flower [Black 1 cap PO DAILY 11/13/21 11/13/21 Unknown History Elderberry 575 mg Cap] Fenofibrate 160 mg PO DAILY 11/13/21 11/13/21 Unknown History Gabapentin [Neurontin] 300 mg PO BID 11/13/21 11/13/21 Unknown History Isosorbide Mononitrate [Isosorbide 30 mg PO Q24H 11/13/21 11/13/21 Unknown History Mononitrate ER] Metoprolol [Lopressor TAB] 50 mg PO BID 11/13/21 11/13/21 Unknown History Mineral Oil/Petrolatum,White 3.5 gm OP Q12H 11/13/21 11/13/21 Unknown History [Artificial Eye Lub 15-83% Oint] Multivitamin with Minerals 1 each PO DAILY 11/13/21 11/13/21 Unknown History [Multivitamins with Minerals] [place]-3 Fatty Acids [Super Twin 1,250 mg PO DAILY 11/13/21 11/13/21 Unknown History Epa-Dha] Omeprazole 40 mg PO QAM 11/13/21 11/13/21 Unknown History Valsartan [Diovan] 80 mg PO DAILY 11/13/21 11/13/21 Unknown History Vit C/E/Zn/Coppr/Lutein/Zeaxan 1 each PO DAILY 11/13/21 11/13/21 Unknown History [Preservision Areds 2 Chew Tab] polyethylene glycoL 3350 [Miralax 17 gm PO QDAY 11/13/21 11/13/21 Unknown History 3350] traMADoL [Ultram] 50 mg PO Q4HR PRN 11/13/21 11/13/21 Unknown History Active Meds: Active Medications Acetaminophen (Acetaminophen 325 Mg Tab) 650 mg PO Q4H PRN PRN Reason: Pain, Mild (1-3) Artificial Tears (Hypromellose 0.5% Ophth Soln 15 Ml) 2 drops OU Q12H PRN PRN Reason: Dry Eye(s) Aspirin (Aspirin Ec 81 Mg Tab) 81 mg PO QDAY [facility] [place] Last Admin: 11/17/21 09:49 Dose: 81 mg Atorvastatin Calcium (Atorvastatin 40 Mg Tab) 40 mg PO HS [facility] [place] Last Admin: 11/17/21 21:25 Dose: 40 mg Cholecalciferol (Cholecalciferol (Vit D3) 5,000 Unit Tab) 5,000 unit PO DAILY [facility] [place] Last Admin: 11/17/21 09:40 Dose: 5,000 unit Escitalopram Oxalate (Escitalopram 10 Mg Tab) 5 mg PO QDAY [facility] [place] Last Admin: 11/17/21 09:41 Dose: 5 mg Fenofibrate (Fenofibrate 145 Mg Tab) 145 mg PO DAILY [facility] [place] Last Admin: 11/17/21 09:40 Dose: 145 mg Fish Oil ([place]-3 Fatty Acids/Fish Oil 1 Gram Cap) 1,000 mg PO QDAY [facility] [place] Last Admin: 11/17/21 09:39 Dose: 1,000 mg Gabapentin (Gabapentin 300 Mg Cap) 300 mg PO BID [facility] [place] Last Admin: 11/17/21 21:25 Dose: 300 mg Isosorbide Mononitrate (Isosorbide Mononitrate Er 30 Mg Tab) 30 mg PO Q24H [facility] [place] Last Admin: 11/17/21 14:23 Dose: 30 mg Metoprolol Tartrate (Metoprolol Tartrate 50 Mg Tab) 50 mg PO BID [facility] [place] Last Admin: 11/17/21 21:25 Dose: 50 mg Multivitamins (Multivitamins ,Therapeutic Tab) 1 each PO DAILY [facility] [place] Last Admin: 11/17/21 09:39 Dose: 1 each Pantoprazole Sodium (Pantoprazole 40 Mg Tab) 40 mg PO DAILY [facility] [place] Last Admin: 11/17/21 09:40 Dose: 40 mg Polyethylene Glycol (Polyethylene Glycol 3350 17 Gm Powder) 17 gm PO QDAY [facility] [place] Last Admin: 11/17/21 09:49 Dose: Not Given Tramadol HCl (Tramadol 50 Mg Tab) 50 mg PO Q4HR PRN PRN Reason: Pain, Moderate (4-6) Last Admin: 11/15/21 17:11 Dose: 50 mg Trazodone HCl (Trazodone 50 Mg Tab) 50 mg PO QHS [facility] [place] Last Admin: 11/17/21 21:25 Dose: 50 mg Valsartan (Valsartan 160mg Tab) 80 mg PO QDAY [facility] [place] Last Admin: 11/17/21 09:43 Dose: 80 mg Results - Results Labs/Vitals: Laboratory Last Values WBC 6.9 K/mm3 (4.5-11.0) 11/13/21 09:58 RBC 3.82 M/mm3 (3.65-5.03) 11/13/21 09:58 Hgb 12.6 gm/dl (11.8-15.2) 11/13/21 09:58 Hct 36.7 % (35.5-45.6) 11/13/21 09:58 MCV 96 fl (84-94) H 11/13/21 09:58 MCH 33 pg (28-32) H 11/13/21 09:58 MCHC 34 % (32-34) 11/13/21 09:58 RDW 16.2 % (13.2-15.2) H 11/13/21 09:58 Plt Count 272 K/mm3 (140-440) 11/13/21 09:58 Lymph % (Auto) 23.4 % (13.4-35.0) 11/13/21 09:58 [place] % (Auto) 9.9 % (0.0-7.3) H 11/13/21 09:58 Eos % (Auto) 0.5 % (0.0-4.3) 11/13/21 09:58 Baso % (Auto) 0.7 % (0.0-1.8) 11/13/21 09:58 Lymph # (Auto) 1.6 K/mm3 (1.2-5.4) 11/13/21 09:58 [place] # (Auto) 0.7 K/mm3 (0.0-0.8) 11/13/21 09:58 Eos # (Auto) 0.0 K/mm3 (0.0-0.4) 11/13/21 09:58 Baso # (Auto) 0.1 K/mm3 (0.0-0.1) 11/13/21 09:58 Seg Neutrophils % 65.5 % (40.0-70.0) 11/13/21 09:58 Seg Neutrophils # 4.5 K/mm3 (1.8-7.7) 11/13/21 09:58 Sodium 138 mmol/L (137-145) 11/13/21 09:58 Potassium 3.6 mmol/L (3.6-5.0) 11/13/21 09:58 Chloride 103.2 mmol/L (98-107) 11/13/21 09:58 Carbon Dioxide 22 mmol/L (22-30) 11/13/21 09:58 Anion Gap 16 mmol/L 11/13/21 09:58 BUN 13 mg/dL (9-20) 11/13/21 09:58 Creatinine 0.9 mg/dL (0.8-1.3) 11/13/21 09:58 Estimated GFR > 60 ml/min 11/13/21 09:58 BUN/Creatinine Ratio 14 % 11/13/21 09:58 Glucose 110 mg/dL (75-100) H 11/13/21 09:58 Hemoglobin A1c 5.6 % (4-6) 11/13/21 09:58 Calcium 9.7 mg/dL (8.4-10.2) 11/13/21 09:58 Total Bilirubin 0.50 mg/dL (0.1-1.2) 11/13/21 09:58 AST 29 units/L (5-40) 11/13/21 09:58 ALT 25 units/L (7-56) 11/13/21 09:58 Alkaline Phosphatase 73 units/L (35-129) 11/13/21 09:58 Total Protein 6.8 g/dL (6.3-8.2) 11/13/21 09:58 Albumin 3.9 g/dL (3.9-5) 11/13/21 09:58 Albumin/Globulin Ratio 1.3 % 11/13/21 09:58 Triglycerides 172 mg/dL (2-149) H 11/13/21 09:58 Cholesterol 191 mg/dL (50-199) 11/13/21 09:58 LDL Cholesterol Direct 121 mg/dL (50-130) 11/13/21 09:58 HDL Cholesterol 39 mg/dL (40-59) L 11/13/21 09:58 Cholesterol/HDL Ratio 4.89 % 11/13/21 09:58 TSH 2.900 mlU/mL (0.270-4.200) 11/13/21 09:58 Last Vital Signs Temp 97.4 F L 11/17/21 08:34 Pulse 72 11/17/21 21:25 Resp 18 11/17/21 08:34 BP 104/72 11/17/21 21:25 Pulse Ox 96 11/16/21 20:56
[2021-11-18] MEDS: VALSARTAN 160MG TAB PO SCH (10:21)
[2021-11-18] MEDS: METOPROLOL TARTRATE 50 MG TAB PO SCH ×2 (10:22→21:15)
[2021-11-18] MEDS: FENOFIBRATE 145 MG TAB PO SCH (10:24)
[2021-11-18] MEDS: ESCITALOPRAM 10 MG TAB PO SCH (10:25)
[2021-11-18] MEDS: MULTIVITAMINS ,THERAPEUTIC TAB PO SCH (10:25)
[2021-11-18] MEDS: ASPIRIN EC 81 MG TAB PO SCH (10:25)
[2021-11-18] MEDS: OMEGA-3 FATTY ACIDS/FISH OIL 1 GRAM CAP PO SCH (10:25)
[2021-11-18] MEDS: GABAPENTIN 300 MG CAP PO SCH ×2 (10:26→21:15)
[2021-11-18] MEDS: PANTOPRAZOLE 40 MG TAB PO SCH (10:26)
[2021-11-18] MEDS: CHOLECALCIFEROL (VIT D3) 5,000 UNIT TAB PO SCH (10:27)
[2021-11-18] MEDS: POLYETHYLENE GLYCOL 3350 17 GM POWDER PO SCH (10:27)
--- NOTE | 2021-11-18 20:20 | Progress Note ---
Assessment and Plan - Patient Problems (1) Major depression Current Visit: Yes Status: Acute Qualifiers: Psychotic features: with psychotic features Plan to address problem: Continue medical management, supportive care. Behavior change counseling, cognitive behavioral therapy. (2) Vascular dementia with behavioral disturbance Current Visit: Yes Status: Acute Plan to address problem: Verbal prompting, verbal redirection, benzodiazepine therapy as clinically indicated (3) Cerebral atherosclerosis Current Visit: Yes Status: Acute Plan to address problem: Risk factor reduction, antiplatelet therapy as clinically indicated. (4) Hypertension Current Visit: Yes Status: Acute Qualifiers: Hypertension type: primary hypertension Qualified Code(s): I10 - Essential (primary) hypertension Plan to address problem: Monitor blood pressure every shift, continue medical management (5) Hyperlipidemia Current Visit: Yes Status: Acute Qualifiers: Hyperlipidemia type: mixed hyperlipidemia Qualified Code(s): E78.2 - Mixed hyperlipidemia Plan to address problem: Low-cholesterol diet, statin therapy, supportive care. (6) Obesity Current Visit: Yes Status: Acute Plan to address problem: Balanced diet, increase physical activity discharge (7) Osteoarthritis Current Visit: Yes Status: Acute Plan to address problem: Pain control, supportive care. (8) Advance care planning Current Visit: Yes Status: Acute Plan to address problem: Disease education data, care plan discussed, diagnoses discussed, patient is full code, +30 minutes. (9) Preventative health care Current Visit: Yes Status: Acute Plan to address problem: Home safety counseling, outpatient follow-up with primary care physician for all age and risk factor appropriate screening test. +30 minutes. Subjective Date of service: 11/18/21 Principal diagnosis: Major Depression Interval history: History Interval history: 76-year-old male with Vascular Dementia with behavioral disturbance, Cerebral Atherosclerosis, HTN, HLD, Anemia of chronic disease, GERD, Obesity, OA, MDD admitted to [facility] for psychiatric stabilization. Consult placed by Dr. Sauecda for medical management. Patient seen and evaluated in the recreation room. Patient appears to be at baseline level of cognition and function. No reported nursing events. Objective - Constitutional Vitals: Vital Signs - 12hr 11/18/21 11/18/21 11/18/21 09:59 10:01 10:21 Temperature 97.4 F L Pulse Rate 81 83 65 Respiratory 20 Rate Blood Pressure 84/59 86/49 84/59 O2 Sat by Pulse 97 95 Oximetry 11/18/21 11/18/21 10:22 12:00 Temperature Pulse Rate 65 65 Respiratory Rate Blood Pressure 84/59 84/59 O2 Sat by Pulse Oximetry General appearance: Present: no acute distress, well-nourished - EENT Eyes: PERRL, EOM intact ENT: hearing intact, clear oral mucosa Ears: bilateral: normal - Neck Neck: supple, normal ROM - Respiratory Respiratory effort: normal Respiratory: bilateral: CTA - Breasts Breasts: normal - Cardiovascular Heart rate: 78 Rhythm: regular Heart Sounds: Present: S1 & S2. Absent: gallop, rub Extremities: no ischemia, pulses intact, No edema, normal color, Full ROM - Gastrointestinal General gastrointestinal: Present: soft, non-tender, non-distended, normal bowel sounds - Genitourinary Male genitourinary: normal - Integumentary Integumentary: clear, warm, dry - Musculoskeletal Musculoskeletal: 1, strength equal bilaterally - Neurologic Neurologic: moves all extremities - Psychiatric Psychiatric: memory intact, appropriate mood/affect, intact judgment & insight - Labs CBC & Chem 7: 11/13/21 09:58 11/13/21 09:58
[2021-11-18] MEDS: traMADol 50 MG TAB PO PRN (21:15)
[2021-11-18] MEDS: traZODone 50 MG TAB PO SCH (21:15)
--- NOTE | 2021-11-19 09:40 | Progress Note ---
Subjective Date of service: 11/19/21 Principal diagnosis: Major Depression Subjective Comment: 11/19:The patient was seen today. He reports feeling better. He states sleep and appetite as good. He denies any current suicidal/homicidal ideation and denies hallucinations. No changes made today. 11/18: The patient was seen today. He reports feeling weird " my head is cold." He states sleep and appetite as good. He denies any current suicidal/homicidal ideation and denies hallucinations. No changes made today. 11/17: The patient was seen at breakfast socializing with peer. He reports doing well and mood is good. He states sleep and appetite as good. He denies any current suicidal/homicidal ideation and denies hallucinations. No changes made today. 11/16:The patient was seen today. The patient is calm and cooperative. He states he is ok" everything is working." He denies suicidal ideation " that's from somebody but they said it was me." he continues to present with periods of confusion. He denies any current suicidal/homicidal and denies hallucinations. 11/15: The patient was seen today. The patient is calm with constricted affect, states mood " as usual." He denies depression. He denies any current suicidal/homicidal and denies hallucinations. 11/14:The patient was seen today. He has periods of confusion. He says he slept well he doesn't remember being in the hospital. He denies SI/HI. When asked about hallucinations, he states "I don't know." REVIEW OF SYSTEMS Constitutional: Negative for weight loss ENT: Negative for stridor Respiratory: Negative for cough or hemoptysis All other systems reviewed and are negative MENTAL STATUS General Appearance and Behavior: age appropriate, good eye contact, cooperative with questioning and polite Cooperation: Cooperative Psychomotor Behavior: within normal limits Mood: ok Affect and affective range: Constricted Thought Process: goal directed Thought Content: Reality oriented Speech: normal Suicidal Ideation: Denies Homicidal Ideation: Denies HI Hallucinations: Denies Impulse Control: normal Insight and Judgment: limited Memory: Limited Attention: Limited Orientation: alert and oriented Assessment Major Depressive Disorder Treatment Plan Patient will be admitted for inpatient psychiatric evaluation, medication adjustment and close monitoring The patient's behavior, mood, sleep and appetite will be closely monitored. Patient will be enrolled in individual and group therapeutic sessions and encouraged to attend. Patient will be provided with a safe and structured environment. Patient's physical health needs will be addressed by the Hospitalist. Hospitalist Consulted Labs including CBC, CMP, Lipid profile and Hemoglobin A1C ordered Social Assessment will be completed and the Lean Engineer will work with patient and family to ensure a suitable and safe disposition Medication adjustment will be made as clinically indicated Continue Lexapro 5mg po daily Usual Wellness Synagogue/Preservation: - Start Trazodone 50 mg po QHS PRN The patient agreed on the treatment plan, understood the risk, benefit, alternative treatment, potential consequence of no treatment, and gave informed consent. Case staffed with Dr. Jolly Legal Status: Voluntary Reaction to Hospitalization: Accepting Medications and Allergies Medications and Allergies Allergies Allergy/AdvReac Type Severity Reaction Status Date / Time No Known Allergies Allergy Verified 11/13/21 01:08 Home Medications Medication Instructions Recorded Confirmed Last Taken Type Acetaminophen [Tylenol] 2 tab PO Q4H PRN 11/13/21 11/13/21 Unknown History Aspirin EC [Halfprin EC] 81 mg PO QDAY 11/13/21 11/13/21 Unknown History AtorvaSTATin [Lipitor] 40 mg PO HS 11/13/21 11/13/21 Unknown History Cholecalciferol (Vitamin D3) 5,000 unit PO DAILY 11/13/21 11/13/21 Unknown History [Vitamin D3] Elderberry Fruit and Flower [Black 1 cap PO DAILY 11/13/21 11/13/21 Unknown History Elderberry 575 mg Cap] Fenofibrate 160 mg PO DAILY 11/13/21 11/13/21 Unknown History Gabapentin [Neurontin] 300 mg PO BID 11/13/21 11/13/21 Unknown History Isosorbide Mononitrate [Isosorbide 30 mg PO Q24H 11/13/21 11/13/21 Unknown History Mononitrate ER] Metoprolol [Lopressor TAB] 50 mg PO BID 11/13/21 11/13/21 Unknown History Mineral Oil/Petrolatum,White 3.5 gm OP Q12H 11/13/21 11/13/21 Unknown History [Artificial Eye Lub 15-83% Oint] Multivitamin with Minerals 1 each PO DAILY 11/13/21 11/13/21 Unknown History [Multivitamins with Minerals] [place]-3 Fatty Acids [Super Twin 1,250 mg PO DAILY 11/13/21 11/13/21 Unknown History Epa-Dha] Omeprazole 40 mg PO QAM 11/13/21 11/13/21 Unknown History Valsartan [Diovan] 80 mg PO DAILY 11/13/21 11/13/21 Unknown History Vit C/E/Zn/Coppr/Lutein/Zeaxan 1 each PO DAILY 11/13/21 11/13/21 Unknown History [Preservision Areds 2 Chew Tab] polyethylene glycoL 3350 [Miralax 17 gm PO QDAY 11/13/21 11/13/21 Unknown History 3350] traMADoL [Ultram] 50 mg PO Q4HR PRN 11/13/21 11/13/21 Unknown History Active Meds: Active Medications Acetaminophen (Acetaminophen 325 Mg Tab) 650 mg PO Q4H PRN PRN Reason: Pain, Mild (1-3) Artificial Tears (Hypromellose 0.5% Ophth Soln 15 Ml) 2 drops OU Q12H PRN PRN Reason: Dry Eye(s) Aspirin (Aspirin Ec 81 Mg Tab) 81 mg PO QDAY [facility] Last Admin: 11/18/21 10:25 Dose: 81 mg Atorvastatin Calcium (Atorvastatin 40 Mg Tab) 40 mg PO HS [facility] Last Admin: 11/18/21 21:15 Dose: 40 mg Cholecalciferol (Cholecalciferol (Vit D3) 5,000 Unit Tab) 5,000 unit PO DAILY [facility] Last Admin: 11/18/21 10:27 Dose: 5,000 unit Escitalopram Oxalate (Escitalopram 10 Mg Tab) 5 mg PO QDAY [facility] Last Admin: 11/18/21 10:25 Dose: 5 mg Fenofibrate (Fenofibrate 145 Mg Tab) 145 mg PO DAILY [facility] Last Admin: 11/18/21 10:24 Dose: 145 mg Fish Oil ([place]-3 Fatty Acids/Fish Oil 1 Gram Cap) 1,000 mg PO QDAY [facility] Last Admin: 11/18/21 10:25 Dose: 1,000 mg Gabapentin (Gabapentin 300 Mg Cap) 300 mg PO BID [facility] Last Admin: 11/18/21 21:15 Dose: 300 mg Isosorbide Mononitrate (Isosorbide Mononitrate Er 30 Mg Tab) 30 mg PO Q24H [facility] Last Admin: 11/18/21 12:00 Dose: Not Given Metoprolol Tartrate (Metoprolol Tartrate 50 Mg Tab) 50 mg PO BID [facility] Last Admin: 11/18/21 21:15 Dose: 50 mg Multivitamins (Multivitamins ,Therapeutic Tab) 1 each PO DAILY [facility] Last Admin: 11/18/21 10:25 Dose: 1 each Pantoprazole Sodium (Pantoprazole 40 Mg Tab) 40 mg PO DAILY [facility] Last Admin: 11/18/21 10:26 Dose: 40 mg Polyethylene Glycol (Polyethylene Glycol 3350 17 Gm Powder) 17 gm PO QDAY [facility] Last Admin: 11/18/21 10:27 Dose: Not Given Tramadol HCl (Tramadol 50 Mg Tab) 50 mg PO Q4HR PRN PRN Reason: Pain, Moderate (4-6) Last Admin: 11/18/21 21:15 Dose: 50 mg Trazodone HCl (Trazodone 50 Mg Tab) 50 mg PO QHS [facility] Last Admin: 11/18/21 21:15 Dose: 50 mg Valsartan (Valsartan 160mg Tab) 80 mg PO QDAY [facility] Last Admin: 11/18/21 10:21 Dose: Not Given Results - Results Labs/Vitals: Laboratory Last Values WBC 6.9 K/mm3 (4.5-11.0) 11/13/21 09:58 RBC 3.82 M/mm3 (3.65-5.03) 11/13/21 09:58 Hgb 12.6 gm/dl (11.8-15.2) 11/13/21 09:58 Hct 36.7 % (35.5-45.6) 11/13/21 09:58 MCV 96 fl (84-94) H 11/13/21 09:58 MCH 33 pg (28-32) H 11/13/21 09:58 MCHC 34 % (32-34) 11/13/21 09:58 RDW 16.2 % (13.2-15.2) H 11/13/21 09:58 Plt Count 272 K/mm3 (140-440) 11/13/21 09:58 Lymph % (Auto) 23.4 % (13.4-35.0) 11/13/21 09:58 [place] % (Auto) 9.9 % (0.0-7.3) H 11/13/21 09:58 Eos % (Auto) 0.5 % (0.0-4.3) 11/13/21 09:58 Baso % (Auto) 0.7 % (0.0-1.8) 11/13/21 09:58 Lymph # (Auto) 1.6 K/mm3 (1.2-5.4) 11/13/21 09:58 [place] # (Auto) 0.7 K/mm3 (0.0-0.8) 11/13/21 09:58 Eos # (Auto) 0.0 K/mm3 (0.0-0.4) 11/13/21 09:58 Baso # (Auto) 0.1 K/mm3 (0.0-0.1) 11/13/21 09:58 Seg Neutrophils % 65.5 % (40.0-70.0) 11/13/21 09:58 Seg Neutrophils # 4.5 K/mm3 (1.8-7.7) 11/13/21 09:58 Sodium 138 mmol/L (137-145) 11/13/21 09:58 Potassium 3.6 mmol/L (3.6-5.0) 11/13/21 09:58 Chloride 103.2 mmol/L (98-107) 11/13/21 09:58 Carbon Dioxide 22 mmol/L (22-30) 11/13/21 09:58 Anion Gap 16 mmol/L 11/13/21 09:58 BUN 13 mg/dL (9-20) 11/13/21 09:58 Creatinine 0.9 mg/dL (0.8-1.3) 11/13/21 09:58 Estimated GFR > 60 ml/min 11/13/21 09:58 BUN/Creatinine Ratio 14 % 11/13/21 09:58 Glucose 110 mg/dL (75-100) H 11/13/21 09:58 Hemoglobin A1c 5.6 % (4-6) 11/13/21 09:58 Calcium 9.7 mg/dL (8.4-10.2) 11/13/21 09:58 Total Bilirubin 0.50 mg/dL (0.1-1.2) 11/13/21 09:58 AST 29 units/L (5-40) 11/13/21 09:58 ALT 25 units/L (7-56) 11/13/21 09:58 Alkaline Phosphatase 73 units/L (35-129) 11/13/21 09:58 Total Protein 6.8 g/dL (6.3-8.2) 11/13/21 09:58 Albumin 3.9 g/dL (3.9-5) 11/13/21 09:58 Albumin/Globulin Ratio 1.3 % 11/13/21 09:58 Triglycerides 172 mg/dL (2-149) H 11/13/21 09:58 Cholesterol 191 mg/dL (50-199) 11/13/21 09:58 LDL Cholesterol Direct 121 mg/dL (50-130) 11/13/21 09:58 HDL Cholesterol 39 mg/dL (40-59) L 11/13/21 09:58 Cholesterol/HDL Ratio 4.89 % 11/13/21 09:58 TSH 2.900 mlU/mL (0.270-4.200) 11/13/21 09:58 Last Vital Signs Temp 98.5 F 11/18/21 20:45 Pulse 90 11/18/21 21:15 Resp 18 11/18/21 21:15 BP 125/78 11/18/21 21:15 Pulse Ox 96 11/18/21 20:45
[2021-11-19] MEDS: MULTIVITAMINS ,THERAPEUTIC TAB PO SCH (10:09)
[2021-11-19] MEDS: OMEGA-3 FATTY ACIDS/FISH OIL 1 GRAM CAP PO SCH (10:09)
[2021-11-19] MEDS: POLYETHYLENE GLYCOL 3350 17 GM POWDER PO SCH (10:10)
[2021-11-19] MEDS: ESCITALOPRAM 10 MG TAB PO SCH (10:10)
[2021-11-19] MEDS: GABAPENTIN 300 MG CAP PO SCH ×2 (10:10→21:51)
[2021-11-19] MEDS: VALSARTAN 160MG TAB PO SCH (10:11)
[2021-11-19] MEDS: FENOFIBRATE 145 MG TAB PO SCH (10:12)
[2021-11-19] MEDS: METOPROLOL TARTRATE 50 MG TAB PO SCH ×2 (10:12→21:52)
[2021-11-19] MEDS: PANTOPRAZOLE 40 MG TAB PO SCH (10:12)
[2021-11-19] MEDS: ASPIRIN EC 81 MG TAB PO SCH (10:13)
[2021-11-19] MEDS: CHOLECALCIFEROL (VIT D3) 5,000 UNIT TAB PO SCH (10:13)
--- NOTE | 2021-11-19 18:25 | Discharge Summary ---
Providers - Providers Date of Admission: 11/13/21 00:49 Date of discharge: 11/20/21 Attending physician: MARLY COVARRUBIAS MD 11/12/21 23:57 Consult to Physician [CONS] Routine Comment: Consulting Provider: ANTON CARROLL Physician Instructions: Ps manage problems as per H&P Reason For Exam: New admission Primary care physician: ADVERTISING SUPERVISOR Hospitalization Reason for admission: suicidal ideation Admitting Diagnosis: F33.9 - MAJOR DEPRESSIVE DISORDER, RECURRENT, UNSPECIFIED Condition: Stable Hospital course: The patient was provided inpatient psychiatric treatment with safe and supportive environment, group/individual therapy, psychiatric medication, medication adjustment, adverse effect monitor, medical evaluation, medical treatment, social service assessment, social support meeting, placement assessment and psycho-education. The patients mood, cognition, behavior, motivation, compliance to treatment and appreciation on family/social support are improved and stabilized. At the time of discharge, the patient had no suicidal ideas, no homicidal ideas, no aggressive thoughts, no endangering behavior and no debilitating adverse effects. The patient agreed on the treatment plan, understood the risk, benefit, alternative treatment, potential consequence of no treatment, and gave informed consent. Progress Note: 11/19:The patient was seen today. He reports feeling better. He states sleep and appetite as good. He denies any current suicidal/homicidal ideation and denies hallucinations. No changes made today. 11/18: The patient was seen today. He reports feeling weird " my head is cold." He states sleep and appetite as good. He denies any current suicidal/homicidal ideation and denies hallucinations. No changes made today. 11/17: The patient was seen at breakfast socializing with peer. He reports doing well and mood is good. He states sleep and appetite as good. He denies any current suicidal/homicidal ideation and denies hallucinations. No changes made today. 11/16:The patient was seen today. The patient is calm and cooperative. He states he is ok" everything is working." He denies suicidal ideation " that's from somebody but they said it was me." he continues to present with periods of confusion. He denies any current suicidal/homicidal and denies hallucinations. 11/15: The patient was seen today. The patient is calm with constricted affect, states mood " as usual." He denies depression. He denies any current suicidal/homicidal and denies hallucinations. 11/14:The patient was seen today. He has periods of confusion. He says he slept well he doesn't remember being in the hospital. He denies SI/HI. When asked about hallucinations, he states "I don't know." Disposition: 01 HOME / SELF CARE / HOMELESS Allergies/Adverse Reactions: Allergies No Known Allergies Allergy (Verified 11/13/21 01:08) Vital Signs: Last Vital Signs Temp 98.6 F 11/19/21 09:46 Pulse 81 11/19/21 10:12 Resp 20 11/19/21 09:46 BP 127/76 11/19/21 10:12 Pulse Ox 95 11/19/21 09:46 Last Lab: Laboratory Last Values WBC 6.9 K/mm3 (4.5-11.0) 11/13/21 09:58 RBC 3.82 M/mm3 (3.65-5.03) 11/13/21 09:58 Hgb 12.6 gm/dl (11.8-15.2) 11/13/21 09:58 Hct 36.7 % (35.5-45.6) 11/13/21 09:58 MCV 96 fl (84-94) H 11/13/21 09:58 MCH 33 pg (28-32) H 11/13/21 09:58 MCHC 34 % (32-34) 11/13/21 09:58 RDW 16.2 % (13.2-15.2) H 11/13/21 09:58 Plt Count 272 K/mm3 (140-440) 11/13/21 09:58 Lymph % (Auto) 23.4 % (13.4-35.0) 11/13/21 09:58 [place] % (Auto) 9.9 % (0.0-7.3) H 11/13/21 09:58 Eos % (Auto) 0.5 % (0.0-4.3) 11/13/21 09:58 Baso % (Auto) 0.7 % (0.0-1.8) 11/13/21 09:58 Lymph # (Auto) 1.6 K/mm3 (1.2-5.4) 11/13/21 09:58 [place] # (Auto) 0.7 K/mm3 (0.0-0.8) 11/13/21 09:58 Eos # (Auto) 0.0 K/mm3 (0.0-0.4) 11/13/21 09:58 Baso # (Auto) 0.1 K/mm3 (0.0-0.1) 11/13/21 09:58 Seg Neutrophils % 65.5 % (40.0-70.0) 11/13/21 09:58 Seg Neutrophils # 4.5 K/mm3 (1.8-7.7) 11/13/21 09:58 Sodium 138 mmol/L (137-145) 11/13/21 09:58 Potassium 3.6 mmol/L (3.6-5.0) 11/13/21 09:58 Chloride 103.2 mmol/L (98-107) 11/13/21 09:58 Carbon Dioxide 22 mmol/L (22-30) 11/13/21 09:58 Anion Gap 16 mmol/L 11/13/21 09:58 BUN 13 mg/dL (9-20) 11/13/21 09:58 Creatinine 0.9 mg/dL (0.8-1.3) 11/13/21 09:58 Estimated GFR > 60 ml/min 11/13/21 09:58 BUN/Creatinine Ratio 14 % 11/13/21 09:58 Glucose 110 mg/dL (75-100) H 11/13/21 09:58 Hemoglobin A1c 5.6 % (4-6) 11/13/21 09:58 Calcium 9.7 mg/dL (8.4-10.2) 11/13/21 09:58 Total Bilirubin 0.50 mg/dL (0.1-1.2) 11/13/21 09:58 AST 29 units/L (5-40) 11/13/21 09:58 ALT 25 units/L (7-56) 11/13/21 09:58 Alkaline Phosphatase 73 units/L (35-129) 11/13/21 09:58 Total Protein 6.8 g/dL (6.3-8.2) 11/13/21 09:58 Albumin 3.9 g/dL (3.9-5) 11/13/21 09:58 Albumin/Globulin Ratio 1.3 % 11/13/21 09:58 Triglycerides 172 mg/dL (2-149) H 11/13/21 09:58 Cholesterol 191 mg/dL (50-199) 11/13/21 09:58 LDL Cholesterol Direct 121 mg/dL (50-130) 11/13/21 09:58 HDL Cholesterol 39 mg/dL (40-59) L 11/13/21 09:58 Cholesterol/HDL Ratio 4.89 % 11/13/21 09:58 TSH 2.900 mlU/mL (0.270-4.200) 11/13/21 09:58 Core Measure Documentation - Palliative Care Palliative Care/ Comfort Measures: Not Applicable - Core Measures Any of the following diagnoses?: none - VTE Discharge Requirements Deep Vein Thrombosis/Pulmonary Embolism Present on Admission: No Exam - Constitutional Vitals: Temp Pulse Resp BP Pulse Ox 98.6 F 81 20 127/76 95 11/19/21 09:46 11/19/21 10:12 11/19/21 09:46 11/19/21 10:12 11/19/21 09:46 Plan Activity: advance as tolerated Weight Bearing Status: Weight Bear as Tolerated Care Plan Goals: Maintain good and stable mental health. Plan of Treatment: The patient should be compliant with medications, not to use drugs and not to drink alcohol.The patient understands that if suicidal ideas, homicidal ideas, or any endangering thoughts/behavior arise, they should immediately seek for emergent assistance including but not limited to crisis hot line and emergency room. Follow up with outpatient Psychiatrist and PCP within 7 - 14 days of discharge. Follow up with: PRIMARY CARE,MD [Primary Care Provider] - 7 Days Prescriptions: Gabapentin 300 mg PO BID 30 Days #60 capsule Escitalopram [Lexapro] 5 mg PO QDAY 60 Days #30 tablet
[2021-11-19] MEDS: traZODone 50 MG TAB PO SCH (21:50)
--- NOTE | 2021-11-20 07:57 | Progress Note ---
Assessment and Plan - Patient Problems (1) Major depression Current Visit: Yes Status: Acute Qualifiers: Psychotic features: with psychotic features Plan to address problem: Continue medical management, supportive care. Behavior change counseling, cognitive behavioral therapy. (2) Vascular dementia with behavioral disturbance Current Visit: Yes Status: Acute Plan to address problem: Verbal prompting, verbal redirection, benzodiazepine therapy as clinically indicated (3) Cerebral atherosclerosis Current Visit: Yes Status: Acute Plan to address problem: Risk factor reduction, antiplatelet therapy as clinically indicated. (4) Hypertension Current Visit: Yes Status: Acute Qualifiers: Hypertension type: primary hypertension Qualified Code(s): I10 - Essential (primary) hypertension Plan to address problem: Monitor blood pressure every shift, continue medical management (5) Hyperlipidemia Current Visit: Yes Status: Acute Qualifiers: Hyperlipidemia type: mixed hyperlipidemia Qualified Code(s): E78.2 - Mixed hyperlipidemia Plan to address problem: Low-cholesterol diet, statin therapy, supportive care. (6) Obesity Current Visit: Yes Status: Acute Plan to address problem: Balanced diet, increase physical activity discharge (7) Osteoarthritis Current Visit: Yes Status: Acute Plan to address problem: Pain control, supportive care. (8) Advance care planning Current Visit: Yes Status: Acute Plan to address problem: Disease education data, care plan discussed, diagnoses discussed, patient is full code, +30 minutes. (9) Preventative health care Current Visit: Yes Status: Acute Plan to address problem: Home safety counseling, outpatient follow-up with primary care physician for all age and risk factor appropriate screening test. +30 minutes. Subjective Date of service: 11/19/21 Principal diagnosis: Major Depression Interval history: History Interval history: 76-year-old male with Vascular Dementia with behavioral disturbance, Cerebral Atherosclerosis, HTN, HLD, Anemia of chronic disease, GERD, Obesity, OA, MDD admitted to [facility] for psychiatric stabilization. Consult placed by Dr. Sauceda for medical management. Patient seen and evaluated in the recreation room. Patient appears to be at baseline level of cognition and function. No reported nursing events. Objective - Constitutional Vitals: Vital Signs - 12hr 11/19/21 21:52 Pulse Rate 89 Blood Pressure 136/73 General appearance: Present: no acute distress, well-nourished - EENT Eyes: PERRL, EOM intact ENT: hearing intact, clear oral mucosa Ears: bilateral: normal - Neck Neck: supple, normal ROM - Respiratory Respiratory effort: normal Respiratory: bilateral: CTA - Breasts Breasts: normal - Cardiovascular Heart rate: 76 Rhythm: regular Heart Sounds: Present: S1 & S2. Absent: gallop, rub Extremities: pulses intact, No edema, normal color, Full ROM - Gastrointestinal General gastrointestinal: Present: soft, non-tender, non-distended, normal bowel sounds - Genitourinary Male genitourinary: normal - Integumentary Integumentary: clear, warm, dry - Musculoskeletal Musculoskeletal: 1, strength equal bilaterally - Neurologic Neurologic: moves all extremities - Psychiatric Psychiatric: memory intact, appropriate mood/affect, intact judgment & insight - Labs CBC & Chem 7: 11/13/21 09:58 11/13/21 09:58
[2021-11-20 08:13] VITALS: BP 99/66
[2021-11-20] MEDS: PANTOPRAZOLE 40 MG TAB PO SCH (08:59)
[2021-11-20] MEDS: ASPIRIN EC 81 MG TAB PO SCH (08:59)
[2021-11-20] MEDS: OMEGA-3 FATTY ACIDS/FISH OIL 1 GRAM CAP PO SCH (08:59)
[2021-11-20] MEDS: FENOFIBRATE 145 MG TAB PO SCH (09:00)
[2021-11-20] MEDS: VALSARTAN 160MG TAB PO SCH (09:01)
[2021-11-20] MEDS: MULTIVITAMINS ,THERAPEUTIC TAB PO SCH (09:01)
[2021-11-20] MEDS: GABAPENTIN 300 MG CAP PO SCH (09:01)
[2021-11-20] MEDS: CHOLECALCIFEROL (VIT D3) 5,000 UNIT TAB PO SCH (09:01)
[2021-11-20] MEDS: ESCITALOPRAM 10 MG TAB PO SCH (09:02)
[2021-11-20] MEDS: METOPROLOL TARTRATE 50 MG TAB PO SCH (09:02)
[2021-11-20] MEDS: POLYETHYLENE GLYCOL 3350 17 GM POWDER PO SCH (09:02)
== END 2021-11-20 09:05 | DRG 885 ==
LOC: UNDOADMIN 16:24 → 3A 16:24 → 5A 11-13 00:49
PROVIDERS: ADMIT Psychiatry & Neurology Psychiatry; ATTEND Psychiatry & Neurology Psychiatry
DX: F32.3 Major depressive disorder, single episode, severe with psychotic features (principal); F01.51 Vascular dementia, unspecified severity, with behavioral disturbance; I67.2 Cerebral atherosclerosis; I10 Essential (primary) hypertension; K21.9 Gastro-esophageal reflux disease without esophagitis; M19.90 Unspecified osteoarthritis, unspecified site; E78.2 Mixed hyperlipidemia; Z83.3 Family history of diabetes mellitus; Z82.49 Family history of ischemic heart disease and other diseases of the circulatory system; Z79.82 Long term (current) use of aspirin
CPT/HCPCS: 36415; 80053; 80061; 83036; 84443; 85025; G0378